=== PATIENT | male | born 1990 | race Caucasian/White ===

== ENCOUNTER 2021-01-23 08:50 | Day surgery (SDC) | payer OTHER, SELFPAY ==
[2021-01-23] VITALS (12 sets, daily range): BP systolic 104–146; BP diastolic 57–97; PULSE 50–79; RESP 10–20; TEMP 36.2–36.3; O2SAT 97–100
--- NOTE | ~2021-01-23 | XR_ITS ---
EXAMINATION: XR retrograde pyelo w/stent RT EXAM DATE: 01/23/2021 15:39 INDICATION: Right-sided obstructive nephropathy. TECHNIQUE: Fluoroscopy used during XR retrograde pyelo w/stent RT performed by Dr. Que Mcghee MD, urologist. The radiologist Sheldon Shipman M.D. dictating this report of the image(s) available was not present for the procedure. Total fluoroscopic time of 50 seconds. The DAP for this procedure wa s 816 radcm2. A total of 9 images sent to PACS from the exam. Cine run(s) available for review. FINDINGS: Property Analyst image demonstrates right UVJ 7 mm stone. Right ureter was cannulated, injected. There is mild right hydroureteronephrosis. A double-J ureteral stent was placed. Correlate with procedure note. IMPRESSION: Mild right hydroureteronephrosis. Stent in position. Reviewed, dictated and finalized at location B.
--- NOTE | ~2021-01-23 | XR_ITS ---
EXAMINATION: XR abdomen/kub 1V INDICATION: Right flank pain TECHNIQUE: Supine views of the abdomen were obtained on 2 radiographs. COMPARISON: 09/16/2019 FINDINGS: There is a 7 mm stone in the right pelvis at the expected location of the right ureterovesi cular junction corresponding to the stone identified on today's CT scan. No additional urolithiasis i s identified. The bowel gas pattern is normal. There are no dilated loops of bowel. IMPRESSION: 1. 7 mm stone at the right ureterovesicular junction. Reviewed, dictated and finalized at location A.
--- NOTE | ~2021-01-23 | CT_ITS ---
EXAMINATION: CT abdomen pelvis wo con DATE: 01/23/2021 09:47 INDICATION: Right flank pain TECHNIQUE: Computed tomography (CT) of the abdomen and pelvis was performed without intravenous contr ast. The dose-length product (DLP) was 412.34 mGy-cm. Automated exposure control and iterative recons truction technique were employed. COMPARISON: 09/16/2019 FINDINGS: Minimal dependent atelectasis is present in the lung bases. The heart size is normal. The l iver, spleen, pancreas, gallbladder, and adrenal glands are normal. The left kidney is unremarkable. There is an 8 mm stone in the right ureterovesicular junction which causes mild right hydroureteronep hrosis. No pathologically enlarged abdominal or pelvic lymph nodes are identified. There is no free i ntraperitoneal gas or evidence of bowel obstruction. The appendix is normal. There is a tiny fat-cont aining umbilical hernia. IMPRESSION: 1. 8 mm stone at the right ureterovesicular junction causing moderate hydroureteronephrosis. Reviewed, dictated and finalized at location A. IMPRESSION: 1. 8 mm stone at the right ureterovesicular junction causing moderate hydrouret eronephrosis.
[2021-01-23] MEDS: SODIUM CHLORIDE 0.9% IV 1,000 ML 999 ML IV CONT ×2 (09:25→12:32)
[2021-01-23] MEDS: MORPHINE SULFATE (*CRX) 4 MG/ML INJ IV PUSH (09:27)
[2021-01-23] MEDS: ONDANSETRON INJ 4 MG/2 ML VIAL IV PUSH (09:28)
[2021-01-23 09:30] LABS: Basophils Percent Auto 0.5 % (0.2-1.2); Eosinophils Absolute Auto 0.3 K/mm3 (0-0.3); Eosinophils Percent Auto 5.1 % (0-4.4); Hematocrit 49.8 % (42.0-52.0); Hemoglobin 17.3 g/dL (14.0-18.0); Immature Granulocyte Absolute 0.02 K/mm3 (0.00-0.031); Immature Granulocyte Percent A 0.4 % (0-0.5); Lymphocytes Absolute Auto 1.86 K/mm3 (0.9-3.2); Lymphocytes Percent Auto 33.9 % (18.3-44.2); Mean Corpuscular HGB Conc 34.7 g/dl (32-36); Mean Corpuscular Hemoglobin 30.2 pg (26-34); Mean Corpuscular Volume 86.9 fl (80-100); Mean Platelet Volume 10.9 fl (7.4-10.4); Monocytes Absolute Auto 0.4 K/mm3 (0.1-0.6); Monocytes Percent Auto 6.7 % (2.6-8.5); Neutrophils Absolute Auto 2.9 K/mm3 (1.3-6.7); Neutrophils Percent Auto 53.4 % (45.5-73.1); Platelet Count Result 227 k/mm3 (150-375); Red Blood Count 5.73 M/mm3 (4.6-6.20); White Blood Count 5.5 K/mm3 (4.5-10.0)
[2021-01-23 09:35] LABS: Add Urine Microscopic? YES; Appearance Urine Clear (Clear); Bilirubin Urine Negative (Negative); Blood Urine 2+ (Negative); Color Urine Straw (Yellow); Glucose Urine UA Negative (Negative); Ketones Urine Negative (Negative); Leukocyte Esterase Ur Negative LEU/UL (Negative); Mucus Urine Rare /lpf; Nitrate Urine Negative (Negative); Protein Urine Negative (Negative); RBC Urine 0-2 /hpf (0-2); Urobilinogen Urine Negative mg/dL (<2.0); WBC Urine 0-3 /hpf
[2021-01-23 09:42] LABS: Anion Gap 9 mmol/L (8-16); Blood Urea Nitrogen 11 mg/dL (9-20); Calcium 9.8 mg/dL (8.4-10.2); Carbon Dioxide 31 mmol/L (22-30); Chloride 102 mmol/L (98-107); Estimated CRCL calculation 99 ml/min; Estimated Glomerular Filt Rate > 60; Glucose 98 mg/dL (75-110); Potassium 3.4 mmol/L (3.4-5.0); Sodium 142 mmol/L (137-145)
--- NOTE | 2021-01-23 09:51 | ED.GENADULT ---
HPI - General Adult General Chief complaint: Back Pain/Injury Stated complaint: kidney stone Time Seen by Provider: 01/23/21 09:08 Source: patient Mode of arrival: ambulatory Limitations: no limitations History of Present Illness HPI narrative: Patient is a 30-year-old male who presents to emergency department for evaluation of right-sided flank pain with pain to the back into the testicle with history of kidney stones patient has seen urology at [facility] notes over the weekend he developed pain which improved and then worsened today patient presents uncomfortable in no distress and also notes nausea. Patient has not taken anything for his symptoms Related Data Allergies Allergy/AdvReac Type Severity Reaction Status Date / Time No Known Allergies Allergy Unverified 04/26/19 11:07 Review of Systems Review of Systems: All systems reviewed & are unremarkable except as noted in HPI and below PMFSH Past Medical History Medical History Urolithiasis Surgical History Surgical History History of urethral stent Family History Family History (Updated 05/18/14 @ 07:13 by DOCTOR UNKNOWN) Grandparent Family history of Alzheimer's disease Social History Social History Smoking status: Never smoker Alcohol intake: never Exam Narrative: Exam Narrative: GENERAL: Well-appearing, well-nourished, uncomfortable and in no acute distress. HEAD: Normocephalic, atraumatic. EYES: PERRLA and EOMI. ENT: Nares clear, no rhinorrhea or epistaxis. Mucous membranes moist. CHEST: Clear to auscultation. No respiratory distress. No wheezes rales or rhonchi HEART: Regular rate and rhythm. No murmur heard. Normal peripheral pulses. ABDOMEN: Soft, nontender, nondistended, . EXTREMITIES: Normal range of motion. No edema. SKIN: Warm, dry, no rash. NEURO: No focal deficits. Alert and oriented x3. PSYCH: Normal mood and affect. Course Course Emergency Course: Patient with urolithiasis in the room at this time in no distress aware of case findings treatment plan and diagnosis patient denies Reevaluation(s) Reevaluation #1: Patient in the room at this time resting with improved pain with Dilaudid as required multiple doses of pain medication and is currently being hydrated no distress does not appear uncomfortable is aware of the consultation with urology and his findings Date: 01/23/21 Time: 10:41 Reevaluation #2: Patient will be going to the OR at this time Dr. Gonzalez will be performing the procedure. Nurse practitioner Lakseha is in the ER seen the patient Date: 01/23/21 Time: 12:44 Consultations Consultation #1: Discussed case with Lakesha with urology who will come to the ER to consult on patient Date: 01/23/21 Time: 10:41 Vital Signs Vital signs: Vital Signs Temperature 97.1 F L 01/23/21 09:05 Pulse Rate 57 L 01/23/21 09:05 Respiratory Rate 15 01/23/21 09:05 Blood Pressure 128/97 H 01/23/21 09:05 Pulse Oximetry 100 01/23/21 09:05 Temperature 97.1 F L 01/23/21 09:05 Pulse Rate 60 01/23/21 11:07 Respiratory Rate 14 01/23/21 11:07 Blood Pressure 126/86 01/23/21 11:07 Pulse Oximetry 100 01/23/21 11:07 Medical Decision Making MDM Narrative Medical decision making narrative: Patient presented with urolithiasis will go to the operative suite Dr. Gonzalez will do the procedure patient is hemodynamically stable with pain controlled at this time Vital Signs Vital Signs: Vital Signs Temperature 97.1 F L 01/23/21 09:05 Pulse Rate 57 L 01/23/21 09:05 Respiratory Rate 15 01/23/21 09:05 Blood Pressure 128/97 H 01/23/21 09:05 Pulse Oximetry 100 01/23/21 09:05 Temperature 97.1 F L 01/23/21 09:05 Pulse Rate 60 01/23/21 11:07 Respiratory Rate 14 01/23/21 11:07 Blood Pressure 126/86 01/23/21 11:07 P
[2021-01-23] MEDS: HYDROmorphone HCL INJ (*CRX) 1 MG/ML SYR IV PUSH ×2 (10:10→11:56)
[2021-01-23 10:28] LABS: Specific Grav Ur 1.004 (1.001-1.035)
--- NOTE | 2021-01-23 12:06 | WPDANESEPPF ---
Anes - Initial Pre Proc Eval Procedure: Operation Date: 01/23/21 14:30 Proposed Procedures p Cystoscopy,Right Ureteroscopy.Right Retrograde Pyelogram,Stone Extraction,Possible Holmium Laser,Possible Stent Placement - Que Mcghee MD Date/Time: 01/23/21 12:06 Pre Op Diagnosis: kidney stone Patient Data Age: 30 Gender: M Height: 1.8 m Weight: 102 kg Last Vital Signs Temp 36.2 C L 01/23/21 09:05 Pulse 60 01/23/21 11:07 Resp 14 01/23/21 11:07 BP 126/86 01/23/21 11:07 Pulse Ox 100 01/23/21 11:07 Allergies Allergy/AdvReac Type Severity Reaction Status Date / Time No Known Allergies Allergy Unverified 04/26/19 11:07 Laboratory Tests 01/23/21 01/23/21 01/23/21 09:18 09:18 09:18 WBC 5.5 K/mm3 K/mm3 (4.5-10.0) RBC 5.73 M/mm3 M/mm3 (4.6-6.20) Hgb 17.3 g/dL g/dL (14.0-18.0) Hct 49.8 % % (42.0-52.0) MCV 86.9 fl fl (80-100) MCH 30.2 pg pg (26-34) MCHC 34.7 g/dl g/dl (32-36) RDW 12.0 % % (11.5-14.5) Plt Count 227 k/mm3 k/mm3 (150-375) MPV 10.9 fl H fl (7.4-10.4) Immature Gran % (Auto) 0.4 % % (0-0.5) Neut % (Auto) 53.4 % % (45.5-73.1) Lymph % (Auto) 33.9 % % (18.3-44.2) Creek % (Auto) 6.7 % % (2.6-8.5) Eos % (Auto) 5.1 % H % (0-4.4) Baso % (Auto) 0.5 % % (0.2-1.2) Lymph # (Auto) 1.86 K/mm3 K/mm3 (0.9-3.2) Creek # (Auto) 0.4 K/mm3 K/mm3 (0.1-0.6) Eos # (Auto) 0.3 K/mm3 K/mm3 (0-0.3) Baso # (Auto) 0.0 K/mm3 K/mm3 (0.0-0.1) Abs Immat Gran (auto) 0.02 K/mm3 K/mm3 (0.00-0.031) Absolute Neuts (auto) 2.9 K/mm3 K/mm3 (1.3-6.7) Absolute Nucleated RBC 0.0 K/mm3 K/mm3 (0.0-0.012) Nucleated RBC % 0.0 % % (0.0-0.2) Sodium 142 mmol/L mmol/L (137-145) Potassium 3.4 mmol/L mmol/L (3.4-5.0) Chloride 102 mmol/L mmol/L (98-107) Carbon Dioxide 31 mmol/L H mmol/L (22-30) Anion Gap 9 mmol/L mmol/L (8-16) BUN 11 mg/dL mg/dL (9-20) Creatinine 1.20 mg/dL mg/dL (0.7-1.3) Estim Creat Clear Calc 99 ml/min ml/min Estimated GFR > 60 (59 - ) Glucose 98 mg/dL mg/dL (75-110) Calcium 9.8 mg/dL mg/dL (8.4-10.2) Urine Color Straw (Yellow) Urine Appearance Clear (Clear) Urine pH 6.0 (5.0-9.0) Ur Specific [place] 1.004 (1.001-1.035) Urine Protein Negative mg/dL mg/dL (Negative) Urine Glucose (UA) Negative mg/dL mg/dL (Negative) Urine Ketones Negative mg/dL mg/dL (Negative) Ur Blood (Man) 2+ H (Negative) Urine Nitrate Negative (Negative) Urine Bilirubin Negative (Negative) Urine Urobilinogen Negative mg/dL mg/dL (<2.0) Leukocyte Esterase Rfl Negative LISA/UL LISA/UL (Negative) Urine RBC 0-2 /hpf /hpf (0-2) Urine WBC 0-3 /hpf /hpf Urine Mucus Rare /lpf /lpf Patient hx anesthesia problems: none Family hx anesthesia problems: none [facility] Past Medical History Medical History Urolithiasis Surgical History Surgical History History of urethral stent Family History Family History Grandparent Family history of Alzheimer's disease Social History Social History Smoking status: Never smoker Alcohol intake: never Anes - Eval Final PreProcedure Day of Procedure 01/23/21 12:06 Patient weight: obese Heart: regular rate and rhythm Lungs: clear to auscultation and normal air movement Airway: Mallampati scale class
--- NOTE | 2021-01-23 12:53 | WPDURCON ---
Assessment and Plan Assessment and plan (1) Urolithiasis: Code(s): N20.9 - Urinary calculus, unspecified Status: Acute Assessment and Plan: Plan to go to the OR with Dr. Mcghee for: Cystoscopy, right ureteroscopy with stone extraction and possible right stent placement, right retrograde pyelogram, possible holmium laser. Keep NPO, he hasn't eating in >24 hours. Obtain consent. Urology Consult Note HPI Date Seen: 01/23/21 Primary Care Provider: Zach Cooley, Consult Narrative Narrative: Kel Cheng is a 30 year old male who presents to the ER this morning for acute onset of RLQ pain that began around 7am. He denies nausea, vomiting, hematuria, dysuria or frequency to urinate. He states he passed two small stones on Thursday without problem. He has a history of passing stones, and has had a Ureteroscopy with Dr. Lovett in the past to have a stone removed. His CT scan this morning shows an 8mm right UVJ stone, with no other stones present. His WBC is stable, urinalysis shows only 2+ blood and is not suspicious of a UTI, Creatinine is also stable. He is otherwise healthy and denies a history of chronic UTI. He has never had a stone workup before and would like to do that in the office in the future since he has passed so many stones. Review of Systems Cardiovascular: Cardiovascular: Denies chest pain Respiratory: Respiratory: Reports no additional respiratory complaints Gastrointestinal: Gastrointestinal: Reports abdominal pain, Denies nausea and Denies vomiting Genitourinary: Genitourinary: Denies hematuria, Denies dysuria, Denies flank pain, Denies urinary frequency, Denies urinary hesitancy and Denies urinary urgency [facility] Past Medical History Medical History Urolithiasis Surgical History Surgical History History of urethral stent Family History Family History Grandparent Family history of Alzheimer's disease Social History Social History Smoking status: Never smoker Alcohol intake: never Meds Home Medications and Allergies Allergies Allergy/AdvReac Type Severity Reaction Status Date / Time No Known Allergies Allergy Unverified 04/26/19 11:07 Vital Signs Vital Signs - 24 hr 01/23/21 09:05 01/23/21 11:07 Temperature 97.1 F L Pulse Rate 57 L 60 Respiratory Rate 15 14 Blood Pressure 128/97 H 126/86 Pulse Oximetry 100 100 Exam Resp: Effort & Inspection: normal respiratory effort Cardio: Rate: regular rate GI: GI Palp: Yes Soft to palpation and Yes Tenderness to palpation present (GI) (RLQ) : General: Yes no CVA tenderness Extrem: General: no edema Results Labs CBC & Chem 7: 01/23/21 09:18 01/23/21 09:18 Labs: Short CBC 01/23/21 Range/Units 09:18 WBC 5.5 (4.5-10.0) K/mm3 Hgb 17.3 (14.0-18.0) g/dL Hct 49.8 (42.0-52.0) % Plt Count 227 (150-375) k/mm3 BMP 01/23/21 09:18 Sodium 142 Potassium 3.4 Chloride 102 Carbon Dioxide 31 H BUN 11 Creatinine 1.20 Glucose 98 Calcium 9.8 Urine 01/23/21 Range/Units 09:18 Urine Color Straw (Yellow) Urine Appearance Clear (Clear) Urine pH 6.0 (5.0-9.0) Ur Specific [place] 1.004 (1.001-1.035) Urine Protein Negative (Negative) mg/dL Urine Glucose (UA) Negative (Negative) mg/dL
[2021-01-23] MEDS: LACTATED RINGERS 1,000 ML 30 ML IV CONT ×2 (13:20→15:43)
--- NOTE | 2021-01-23 13:53 | WPDHPUPDATE1 ---
History and Physical Update Update Date/Time: 01/23/21 13:53 History and Physical has been reviewed, including an updated exam of the patient. There are NO changes in the patient's condition. Risks, benefits, and alternatives have been discussed and questions answered. Patient agrees to proceed with procedure.
[2021-01-23] MEDS: ceFAZolin 2 GM/D5W 50 ML 2 GM/50 ML BAG IVPB (15:00)
[2021-01-23] MEDS: LIDOCAINE HCL 2% GEL UROJET 10 ML PKG MUCOUS MEM (15:14)
[2021-01-23] MEDS: fentaNYL CITRATE INJ (*CRX) 100 MCG/2 ML VIAL 25 MCG IV PUSH (16:33)
--- NOTE | 2021-01-23 17:05 | PM.PROC ---
Procedure Note - Detailed Date of procedure: 01/23/21 Pre-op diagnosis: kidney stone Post-op diagnosis: same Procedure performed: Cystoscopy, right ureteroscopy, laser lithotripsy, stone extraction, retrograde pyelogram, stent insertion Description of procedure: Informed consent was obtained. Patient taken the operating room. He was given preoperative IV antibiotics. He was induced anesthesia. He was prepped and draped in normal sterile fashion. A 22 F cystoscope was inserted through the urethra into the bladder reinspected the bladder there are no mucosal abnormalities. We then cannulated the right ureteral orifice with a wire. As able to pass a wire beyond the level of the radiopaque stone. We then dilated the distal ureter with a 8-10 coaxial dilator. We then advanced the semi rigid ureteral scope into the distal ureter we encountered the stone. The stone was too large to be removed therefore used a laser fiber to fragment the stone into multiple pieces. Stone fragments removed stent specimen. We then performed retrograde pyelogram which revealed assb-[id number] hydronephrosis. Inspected the distal half of the ureter and there were no residual stones seen over wire replaced a 4.8 variable length stent with a partial curl in the kidney and a curl in the bladder. The bladder is emptied. Lidocaine was instilled. patient was taken to PACU in stable condition Anesthesia: GLMA Surgeon: Que Mcghee MD Drains: No Packing: No Pathology: yes Complications: No immediate complications Condition: stable Disposition: PACU
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
[2021-01-23] MEDS: PHENAZOPYRIDINE HCL 100 MG TABLET PO (17:21)
== END 2021-01-23 17:32 | disposition home or self-care (01) ==
LOC: ANHED 12:45 → ANHSURGERY 12:56
PROVIDERS: Emergency Medicine Emergency Medical Services; Emergency Provider Emergency Medicine; PCP Internal Medicine; Visit Provider Urology
PROC: (CPT 52352; principal; 2021-01-23 14:30)
DX: N20.1 Calculus of ureter (principal); E66.9 Obesity, unspecified; Z68.31 Body mass index [BMI] 31.0-31.9, adult
CPT/HCPCS: 52356; 36415; 74018; 74176; 74420; 80048; 81001; 82365; 85025; 88300; 96361; 96365; 96375; 96376; 99285; A9270; C1769; C2617; J0131; J0690; J1100; J1170; J2250; J2270; J2405; J2704; J3010; J7030; J7120; Q9966

== ENCOUNTER 2021-02-26 14:15 | Outpatient (CLI) | payer OTHER, SELFPAY ==
--- NOTE | ~2021-02-26 | XR_ITS ---
EXAMINATION: XR abdomen/kub 1V DATE: 02/26/2021 14:35 INDICATION: Right ureteral stone TECHNIQUE: A supine view of the abdomen on 2 radiographs was obtained. COMPARISON: KUB and CT dated 01/23/2021 FINDINGS: The stone previously seen at the right ureterovesicular junction is no longer visualized. No evident calcifications identified in the abdomen or pelvis. No dilated loops of bowel to suggest obstruction. Minimal lumbar levocurvature. IMPRESSION: 1. Normal bowel gas pattern. No evident urolithiasis. Reviewed, dictated and finalized at location A.
== END 2021-02-26 14:16 | disposition home or self-care (01) ==
PROVIDERS: PCP Internal Medicine; Visit Provider Urology
DX: N20.1 Calculus of ureter (principal)
CPT/HCPCS: 74018

== ENCOUNTER 2021-11-02 14:13 | Emergency (ER) | payer OTHER, SELFPAY ==
--- NOTE | ~2021-11-02 | XR_ITS ---
EXAMINATION: XR hand RT min 3V DATE: 11/02/2021 15:01 INDICATION: Right hand injury. TECHNIQUE: 3 views of right hand were obtained. COMPARISON: Right wrist radiographs 07/17/2015 FINDINGS: Bone alignment is normal. No fracture. Joint spaces are well maintained. IMPRESSION: 1. Normal right hand. Reviewed, dictated and finalized at location E. OWS INFRASTRUCTURE ENGINEER IMPRESSION: 1. Normal right hand.
--- NOTE | ~2021-11-02 | XR_ITS ---
EXAMINATION: XR hand LT min 3V DATE: 11/02/2021 15:01 INDICATION: Left hand injury. TECHNIQUE: 3 views of left hand were obtained. COMPARISON: None. FINDINGS: Bone alignment is normal. No fracture. Joint spaces are well maintained. IMPRESSION: 1. Normal left hand. Reviewed, dictated and finalized at location E. GLASS INSTALLER IMPRESSION: 1. Normal left hand.
[2021-11-02 14:15] VITALS: BP 161/117; PULSE 60; RESP 16; O2SAT 95
--- NOTE | 2021-11-02 14:40 | PC.NURSE ---
unable to obtain oral or axillary temp. mariana pennington applied.
[2021-11-02 14:41] VITALS: TEMP 37.2
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
[2021-11-02] MEDS: LIDOCAINE, EPINEPHRINE, TETRACAINE VISCOUS SOLN 3 ML (15:30)
== END 2021-11-02 16:21 | disposition home or self-care (01) ==
PROVIDERS: Emergency Provider Emergency Medicine; PCP Internal Medicine
DX: S61.512A Laceration without foreign body of left wrist, initial encounter (principal); S61.412A Laceration without foreign body of left hand, initial encounter; S61.411A Laceration without foreign body of right hand, initial encounter; Z87.442 Personal history of urinary calculi; W25.XXXA Contact with sharp glass, initial encounter
CPT/HCPCS: 12001; 73130; 99284

== ENCOUNTER 2023-02-07 09:44 | Emergency (ER) | payer OTHER, SELFPAY ==
[2023-02-07 10:01] VITALS: BP 137/66; PULSE 83; RESP 20; TEMP 36.6; O2SAT 98
--- NOTE | 2023-02-07 10:25 | ED.MALEGU ---
HPI - Male Genitourinary General Chief complaint: Urogenital-Male Stated complaint: Male Urogenital Time Seen by Provider: 02/07/23 10:08 Source: patient and RN notes reviewed Mode of arrival: ambulatory Limitations: no limitations History of Present Illness HPI Narrative: Patient presents today with an 8-9 day history of a dull ache in his right groin area that radiates to the right or abdomen. States the ache is, ?sporadic , and nothing is painful. He denies dysuria, swelling gas in the right testicle or scrotum, redness. States he does have some pain with ejaculation. Believes he may have epididymitis. Denies concerns for sexually transmitted infections. States he has not had intercourse since May 2022. Related Data Home Medications Medication Instructions Recorded Confirmed desvenlafaxine succinate 50 mg 50 mg PO DAILY 02/07/23 02/07/23 tablet,extended release 24 hr Allergies Allergy/AdvReac Type Severity Reaction Status Date / Time No Known Allergies Allergy Verified 02/07/23 09:47 Review of Systems Review of Systems: CONSTITUTIONAL: Denies body aches, fever, chills, or sweats. EYES: Denies visual changes, redness, or discharge. ENT: Denies rhinorrhea, congestion, sore throat, or otalgia. CARDIOVASCULAR: Denies chest pain, palpitations, or edema. RESPIRATORY: Denies cough or dyspnea. GASTROINTESTINAL: Denies abdominal pain, nausea, vomiting, or diarrhea. GENITOURINARY: Denies dysuria or hematuria. Discomfort to right groin, pain with ejaculation. SKIN: Denies rash, itching, or wounds. MUSCULOSKELETAL: Denies back pain, joint pain, or myalgia. NEUROLOGIC: Denies headache, numbness, tingling, or weakness. PSYCH: Denies depression or anxiety. [facility] Past Medical History Medical History Urolithiasis Surgical History Surgical History History of urethral stent Family History Family History Grandparent Family history of Alzheimer's disease Social History Social History Smoking status: Never smoker Alcohol intake: never Comments At time of signature, I have reviewed and agree with nursing past medical, surgical, social and family history unless otherwise noted. Please see nursing chart for further information. There is no relevant family history pertinent to the presenting complaint Exam Narrative: GENERAL: Well-appearing, well-nourished, and in no acute distress. HEAD: Normocephalic, atraumatic. EYES: EOMI. No redness or drainage. Conjunctivae normal. ENT: Mucous membranes pink and moist. NECK: Normal AROM. CHEST: No respiratory distress. : Chaperoned by Harika Montero RN. Penis appears normal and is nontender. Left testicle is nontender. Right testicle is tender posteriorly without edema. No erythema to the scrotum. Lower abdomen is nontender. No wounds or sores noted. No urethral discharge. EXTREMITIES: Normal range of motion. No edema. SKIN: Warm, dry, no rash. Capillary refill normal. Normal skin turgor. NEURO: No focal deficits. Alert and oriented x3. Gait steady. PSYCH: Normal affect. No signs of depression or anxiety. Course Course Level of Care: Express Care Visit Vital Signs Vital signs: Vital Signs Temperature 97.9 F 02/07/23 10:01 Pulse Rate 83 02/07/23 10:01 Respiratory Rate 02/07/23 10:01 Blood Pressure 137/66 02/07/23 10:01 Pulse Oximetry 98 02/07/23 10:01 Oxygen Delivery Room Air 02/07/23 10:01 Temperature 97.9 F 02/07/23 10:01 Pulse Rate 83 02/07/23 10:01 Respiratory Rate 02/07/23 10:01 Blood Pressure 137/66 02/07/23 10:01 Pulse Oximetry 98 02/07/23 10:01 Oxygen Delivery Room Air 02/07/23 10:01 Reviewed. Pt has been instructed to follow up w
== END 2023-02-07 10:38 | disposition home or self-care (01) ==
PROVIDERS: Emergency Provider Nurse Practitioner; PCP Internal Medicine
DX: N50.811 Right testicular pain (principal)
CPT/HCPCS: 81003; 87491; 87591; 99213; G0463

== ENCOUNTER 2023-02-19 08:09 | Emergency (ER) | payer OTHER, SELFPAY ==
--- NOTE | ~2023-02-19 | CT_ITS ---
EXAMINATION: CT abdomen pelvis w con DATE: 02/19/2023 09:33 INDICATION: Low abdominal pain. TECHNIQUE: Computed tomography (CT) of the abdomen and pelvis was performed with 100 mL Omnipaque 350 intravenous contrast. Automated exposure control and iterative reconstruction technique were employe d. The dose-length product was 1070.03 mGy-cm. COMPARISON: CT abdomen and pelvis 01/23/2021 FINDINGS: The visualized portions of the lung bases demonstrate minimal atelectasis. No pleural effus ion. The heart size is normal. No pericardial effusion. The liver, gallbladder, spleen, pancreas, adr enal glands, and kidneys are normal. The appendix is normal. There are no dilated loops of bowel. The re are no pathologically enlarged lymph nodes. There is no free intraperitoneal fluid. There is mild thoracic and lumbar spondylosis. IMPRESSION: 1. No etiology for the patient's symptoms. Reviewed, dictated and finalized at location A.
--- NOTE | ~2023-02-19 | US_ITS ---
EXAMINATION: US scrotum doppler DATE: 02/19/2023 08:50 INDICATION: Bilateral testicular pain TECHNIQUE: Testicular sonogram utilizing grayscale and Doppler COMPARISON: None. FINDINGS: The right testis measures 4.5 x 3.4 x 2.6 cm. The left testis measures 4.4 x 3.0 x 2.4 cm. There is normal vascular flow to both testes. The right epididymis is normal with normal vascular xiomy w. The left epididymis contains a 6 mm cyst or spermatocele. Small bilateral varicoceles are noted. IMPRESSION: 1. Small bilateral varicoceles. Reviewed, dictated and finalized at location L.
[2023-02-19 08:16] VITALS: BP 172/77; PULSE 90; RESP 18; TEMP 37; O2SAT 97
--- NOTE | 2023-02-19 08:30 | ED.MALEGU ---
HPI - Male Genitourinary General Chief complaint: Urogenital-Male Stated complaint: testicular pain Time Seen by Provider: 02/19/23 08:26 Source: patient Mode of arrival: ambulatory Limitations: no limitations History of Present Illness HPI Narrative: 32 years old white male presents with intermittent sharp stabbing pain at the scrotum posteriorly started 3 weeks ago, he denies any trauma, fever, chills, nausea, vomiting, or urinary symptoms. Pain worse when he tried to set up. Denies any sexual activity over the last few months, last masturbation was yesterday. Patient was seen at urgent care 2 weeks ago, Bactrim, no improvement. Pain has been constant over the last 2 days. Related Data Home Medications Medication Instructions Recorded Confirmed desvenlafaxine succinate 50 mg 50 mg PO DAILY 02/07/23 02/07/23 tablet,extended release 24 hr Allergies Allergy/AdvReac Type Severity Reaction Status Date / Time No Known Allergies Allergy Verified 02/19/23 08:19 Review of Systems Review of Systems: All systems reviewed & are unremarkable except as noted in HPI and below PMFSH Past Medical History Medical History Urolithiasis Surgical History Surgical History History of urethral stent Family History Family History Grandparent Family history of Alzheimer's disease Social History Social History Smoking status: Never smoker Alcohol intake: never Exam Narrative: General appearance: Well-developed, well-nourished Skin: Normal color Head: Normocephalic, nontraumatic Eyes: Clear conjunctiva ENT: Oropharynx normal, ears normal, nose normal Neck: Supple, nontender Chest and respiratory: Airway patent, no respiratory distress, no accessory muscle use Heart: Regular rate/rhythm Abdomen: Soft, nontender, no organomegaly, quiet bowel sounds, genital exam showed no abnormalities. No swelling, no bruises, no mass, no localized tenderness of the penis or the scrotum or testicles Vascular: Normal peripheral pulses, normal capillary refill. Musculoskeletal: Normal range of motion, nontender back Neurologic: Alert and oriented ?3, DIGITAL MEDIA INTERN is normal as tested, no gross motor deficit Course Reevaluation(s) Reevaluation #1: Still have some discomfort and the scrotum posteriorly. Does not look in pain or distress. Date: 02/19/23 Time: 10:42 Vital Signs Vital signs: Vital Signs Temperature 37.0 C 02/19/23 08:16 Pulse Rate 90 02/19/23 08:16 Respiratory Rate 18 02/19/23 08:16 Blood Pressure 172/77 H 02/19/23 08:16 Pulse Oximetry 97 02/19/23 08:16 Temperature 37.0 C 02/19/23 08:16 Pulse Rate 84 02/19/23 10:34 Respiratory Rate 16 02/19/23 10:34 Blood Pressure 144/86 H 02/19/23 10:34 Pulse Oximetry 99 02/19/23 10:34 MDM - Male Genitourinary MDM Narrative Medical decision making narrative: Patient presents with pain at the scrotum posteriorly for the last 3 weeks, physical examination was insignificant, blood work-up includes CBC, CMP, urine analysis showed insignificant abnormalities. Scrotal ultrasound showed small bilateral varicocele, CT abdomen and pelvis with IV contrast showed no etiology for the patient's symptoms. I do not believe the varicocele has anything to do with his pain, could be masturbation related . Anyway patient will be discharged and to follow-up with Dr. Lovett for further evaluation. Differential Diagnosis Differential diagnosis: Likely other (Epididymitis, orchit
[2023-02-19 09:00] LABS: Basophils Percent Auto 0.5 % (0.2-1.2); Eosinophils Absolute Auto 0.3 K/mm3 (0-0.3); Eosinophils Percent Auto 4.3 % (0-4.4); Hematocrit 46.7 % (42.0-52.0); Immature Granulocyte Absolute 0.01 K/mm3 (0.00-0.031); Immature Granulocyte Percent A 0.2 % (0-0.5); Lymphocytes Absolute Auto 1.77 K/mm3 (0.9-3.2); Lymphocytes Percent Auto 27.4 % (18.3-44.2); Mean Corpuscular HGB Conc 34.3 g/dl (32-36); Mean Corpuscular Hemoglobin 30.2 pg (26-34); Mean Corpuscular Volume 88.3 fl (80-100); Mean Platelet Volume 10.7 fl (7.4-10.4); Monocytes Absolute Auto 0.4 K/mm3 (0.1-0.6); Monocytes Percent Auto 6.2 % (2.6-8.5); Neutrophils Percent Auto 61.4 % (45.5-73.1); Platelet Count Result 214 k/mm3 (150-375); Red Blood Count 5.29 M/mm3 (4.6-6.20); Red Cell Distribution Width 12.8 % (11.5-14.5); White Blood Count 6.5 K/mm3 (4.5-10.0)
[2023-02-19 09:11] LABS: Alanine Aminotransferase 156 U/L (6-50); Albumin Level 4.5 g/dL (3.5-5.1); Alkaline Phosphatase 61 U/L (38-126); Anion Gap 7 mmol/L (8-16); Aspartate Amino Transferase 74 U/L (17-59); Bilirubin,Total 0.8 mg/dL (0.2-1.3); Blood Urea Nitrogen 10 mg/dL (9-20); Calcium 8.9 mg/dL (8.4-10.2); Carbon Dioxide 32 mmol/L (22-30); Chloride 105 mmol/L (98-107); Estimated CRCL calculation 114 ml/min; Estimated Glomerular Filt Rate > 60; Glucose 103 mg/dL (65-110); Potassium 3.6 mmol/L (3.4-5.0); Sodium 144 mmol/L (137-145)
[2023-02-19 10:02] LABS: Appearance Urine Clear (Clear); Bilirubin Urine Negative (Negative); Blood Urine Negative (Negative); Color Urine Yellow (Yellow); Glucose Urine UA Negative (Negative); Ketones Urine Trace mg/dL (Negative); Leukocyte Esterase Ur Negative LEU/UL (Negative); Nitrate Urine Negative (Negative); Protein Urine Negative (Negative); Specific Grav Ur 1.031 (1.001-1.035)
[2023-02-19 10:32] LABS: Add Urine Microscopic? NO
[2023-02-19 10:34] VITALS: BP 144/86; PULSE 84; RESP 16; O2SAT 99
== END 2023-02-19 10:38 | disposition home or self-care (01) ==
PROVIDERS: Emergency Provider Emergency Medicine; PCP Internal Medicine
DX: I86.1 Scrotal varices (principal); Z87.442 Personal history of urinary calculi; Z96.0 Presence of urogenital implants
CPT/HCPCS: 36415; 74177; 76870; 80053; 81003; 85025; 93976; 99284; Q9967

== ENCOUNTER 2023-02-28 08:12 | Emergency (ER) | payer OTHER, SELFPAY ==
[2023-02-28 08:43] VITALS: BP 130/80; PULSE 73; RESP 18; TEMP 36.3; O2SAT 98
--- NOTE | 2023-02-28 09:05 | ED.EYEPROB ---
HPI - Eye Problem General Chief complaint: Eye Problems Stated complaint: rt eye irritation Time Seen by Provider: 02/28/23 08:58 Source: patient and RN notes reviewed Mode of arrival: ambulatory Limitations: no limitations History of Present Illness HPI Narrative: Patient presents today complaining of redness and small amount of drainage from the right eye that he noticed when he woke up this morning. Denies pain or vision changes. He has tried no [id number] interventions prior to arrival. No recent illness or allergy symptoms. Related Data Home Medications Medication Instructions Recorded Confirmed desvenlafaxine succinate 50 mg 50 mg PO DAILY 02/07/23 02/07/23 tablet,extended release 24 hr Allergies Allergy/AdvReac Type Severity Reaction Status Date / Time No Known Allergies Allergy Verified 02/28/23 08:53 Review of Systems Review of Systems: CONSTITUTIONAL: Denies body aches, fever, chills, or sweats. EYES: Denies visual changes. + right eye redness and drainage ENT: Denies rhinorrhea, congestion, sore throat, or otalgia. CARDIOVASCULAR: Denies chest pain, palpitations, or edema. RESPIRATORY: Denies cough or dyspnea. GASTROINTESTINAL: Denies abdominal pain, nausea, vomiting, or diarrhea. GENITOURINARY: Denies dysuria or hematuria. SKIN: Denies rash, itching, or wounds. MUSCULOSKELETAL: Denies back pain, joint pain, or myalgia. NEUROLOGIC: Denies headache, numbness, tingling, or weakness. PSYCH: Denies depression or anxiety. [facility] Past Medical History Medical History Urolithiasis Surgical History Surgical History History of urethral stent Family History Family History Grandparent Family history of Alzheimer's disease Social History Social History Smoking status: Never smoker Alcohol intake: never Comments At time of signature, I have reviewed and agree with nursing past medical, surgical, social and family history unless otherwise noted. Please see nursing chart for further information. There is no relevant family history pertinent to the presenting complaint Exam Narrative: GENERAL: Well-appearing, well-nourished, and in no acute distress. HEAD: Normocephalic, atraumatic. EYES: EOMI. PERRL. Left eye normal. Right eye: Moderately injected conjunctiva. No active drainage noted. Lids and lashes normal. ENT: Mucous membranes pink and moist. NECK: Normal AROM. CHEST: No respiratory distress. EXTREMITIES: Normal range of motion. No edema. SKIN: Warm, dry, no rash. Capillary refill normal. Normal skin turgor. NEURO: No focal deficits. Alert and oriented x3. Gait steady. PSYCH: Normal affect. No signs of depression or anxiety. Course Course Level of Care: Express Care Visit Vital Signs Vital signs: Vital Signs Temperature 97.3 F L 02/28/23 08:43 Pulse Rate 73 02/28/23 08:43 Respiratory Rate 18 02/28/23 08:43 Blood Pressure 130/80 02/28/23 08:43 Pulse Oximetry 98 02/28/23 08:43 Oxygen Delivery Room Air 02/28/23 08:43 Temperature 97.3 F L 02/28/23 08:43 Pulse Rate 73 02/28/23 08:43 Respiratory Rate 18 02/28/23 08:43 Blood Pressure 130/80 02/28/23 08:43 Pulse Oximetry 98 02/28/23 08:43 Oxygen Delivery Room Air 02/28/23 08:43 Reviewed. Pt has been instructed to follow up with his PCP regarding his elevated blood pressure today. MDM - Eye Problem MDM Narrative Medical decision making narrative: Exam consistent with conjunctivitis. Will treat with ofloxacin. Anticipatory guidance given. Differential Diagnosis Differential diagnosis: Likely corneal abrasion, conjunctivitis and periorbital cellulitis Critical Care Time Critical Care Time Critical Care Time: No D
== END 2023-02-28 09:14 | disposition home or self-care (01) ==
PROVIDERS: Emergency Provider Nurse Practitioner; PCP Internal Medicine
DX: H10.31 Unspecified acute conjunctivitis, right eye (principal); Z96.0 Presence of urogenital implants
CPT/HCPCS: 99213; G0463

== ENCOUNTER 2024-10-18 07:18 | Emergency (ER) | payer OTHER, SELFPAY ==
--- NOTE | ~2024-10-18 | CT_ITS ---
EXAMINATION: CT abdomen pelvis w con DATE: 10/18/2024 08:45 INDICATION: Abdominal pain TECHNIQUE: Computed tomography (CT) of the abdomen and pelvis was performed with 100 mL Omnipaque-350 intravenous contrast. Automated exposure control and iterative reconstruction technique were employe d. The dose-length product was 1002.81 mGy-cm. COMPARISON: 02/19/2023 FINDINGS: Mild dependent atelectasis in the bilateral lower lobes, right greater than left. Heart size is glenroy l. No pericardial or pleural effusion. Liver, gallbladder, spleen, pancreas, bilateral adrenal glands and kidneys are normal. There is fluid scattered throughout the colon consistent with nonspecific di arrhea. Small bowel and appendix are normal. Bladder is normal. No free intraperitoneal gas or fluid. No pathologically enlarged abdominal or pelvic lymphadenopathy. Couple small bone islands in the pel vis and proximal left femur. Minimal scattered degenerative skeletal changes. IMPRESSION: 1. Fluid scattered throughout the colon consistent with nonspecific diarrhea. Correlate clinically fo r gastroenteritis. No other acute intra-abdominal/pelvic process. Reviewed, dictated and finalized at location B. 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 Fluid scattered throughout the colon consistent with nonspecific diarrhea. C orrelate clinically for gastroenteritis. No other acute intra-abdominal/pelvic process.
--- OUTSIDE RECORDS SUMMARY | 2024-10-18 07:21 | XMS_ITS | Clinical Summary ---
Author Organization [facility] Address [address] [place] [address]. [place] [address] [place] [address] Care Team Providers Care Waste Collector Name Role Phone Zach Cooley MD Primary Care Provider [phone] Allergies No known active allergies Medications desvenlafaxine ER (PRISTIQ) 50 MG 24 hr tabletIndication s:Moderate episode of recurrent major depressive disorder (CMS/HCC HHS/HCC) Take 1 tablet (50 mg total) by mouth daily. 90 tablet 3 07/04/2024 Active Active Problems Problem Noted Date Diagnosed Date Laceration 11/12/2021 COVID-19 09/18/2020 Resolved Problems Problem Noted Date Diagnosed Date Resolved Date Kidney stone 10/22/2017 05/16/2020 Hematuria 10/19/2017 05/16/2020 Encounters Date Type Department Care Team Description 08/24/2024 9:00 AM PLASMA PROCESSING CENTRIFUGE OPERATOR Office Visit [facility] Family & Internal Medicine [address] [phone] Zach Cooley MD Wart (Patient c/o wart on Rt elbow); Elbow Pain (Patient c/o shooting pain in RT elbow intermittent with certain movements for the last few months. ) 08/24/2024 Travel from Last 3 Months Immunizations Name Administration Dates Next Due Fluzone 6 Months+ Quad (0.5 mL Prefilled Syringe ) 06/13/2020 Hepatitis A 12/16/2012,06/03/2012 Tdap (Adacel) 06/13/2020 Typhoid (Typhim ) 06/03/2012 Yellow Fever (YF- Vax) 06/03/2012 Family History Medical History Relation Comments Other Father Relation Status Comments Father Alive Mother Alive Social History Tobacco Use Types Packs/Day Years Used Date Smoking Tobacco: Former Cigars Smokeless Tobacco: Former Snuff Tobacco Cessation:Counseling Given: Yes Comments:formerly smoked cigars Alcohol Use Standard Drinks/Week Comments Yes 0 (1 standard drink = 0.6 oz pur e alcohol) occasionally AUDIT-C Answer Date Recorded Frequency of Alcohol Consumption Monthly or less 08/05/2018 Average Number of Drinks 1 or 2 018 Frequency of Binge Drinking Never 07/22 PHQ-2 Answer Date Recorded Patient Health Questionnaire-2 Score 3 11/20/2022 Sex and Gender Information Value Date Recorded Sex Assigned at Male 08/05/2018 8:18 AM PLASMA PROCESSING CENTRIFUGE OPERATOR Legal Sex Male 7:15 PM CDT Gender Identity Male 08/05/2018 8:18 AM PLASMA PROCESSING CENTRIFUGE OPERATOR Sexual Orientation Straight 08/05/2018 8: 18 AM PLASMA PROCESSING CENTRIFUGE OPERATOR Last Filed Vital Signs Vital Sign Reading Time Taken Comments Blood Pressure 130/84 08/24/2024 9:43 AM PLASMA PROCESSING CENTRIFUGE OPERATOR Pulse 84 08/24/2024 9:43 AM PLASMA PROCESSING CENTRIFUGE OPERATOR Temperature 37.2 ??C (99 ??F) 08/24/2024 9: 43 AM PLASMA PROCESSING CENTRIFUGE OPERATOR Respiratory Rate 18 08/24/2024 9:43 AM PLASMA PROCESSING CENTRIFUGE OPERATOR Oxygen Saturation 98% 08/24/2024 9:43 AM PLASMA PROCESSING CENTRIFUGE OPERATOR Inhaled Oxygen Concentration - - Weight 110.6 kg (243 lb 14.4 oz) 08/24/2024 9:43 AM PLASMA PROCESSING CENTRIFUGE OPERATOR Height 180.3 cm (5' 11 ) 08/24/2024 9:43 AM PLASMA PROCESSING CENTRIFUGE OPERATOR Body Mass Index 34.02 08/24/2024 9:43 AM PLASMA PROCESSING CENTRIFUGE OPERATOR Plan of Treatment Health Maintenance Due Date Last Done Comments Hepatitis C 2009 Hepatitis B Vaccines (1 of 3 - 19+ 3-dose series) 2010 Annual Physical 05/16/2021 05/16/2020 PHQ-2 (Physician [place]) 11/21/2023 11/20/2022 PHQ-2 (Physician [place]) 09/21/2024 11/20/2022 Influenza Adult (#1) 2025 06/13/2020 Postpon ed from 06/21/2024 (Patient Refused) COVID-19 Vaccine (3 - 2023-2 5 season) 2025 11/20/2020, 10/23/2020 Postponed from 05/22/2024 (Patient Refused) DTaP, Tdap and Td Vaccines ( 2 - Td or Tdap) 06/13/2030 06/13/2020 HPV Vaccines Aged Out No longer eligi ble based on patient's age to complete this topic Meningococcal B Vaccine Aged Out No l onger eligible based on patient's age to complete this topic Meningococcal Vaccine Aged Out No nic fidencio eligible based on patient's age to complete this topic Pneumococcal Vaccine: Pediatrics (0 to 5 Years) and At-Risk Patients (6 to 64 Years) Aged Out No longer eligible b ased on patient's age to complete this topic RSV Immunizations Under 20 Months Aged Out No longer eligible b ased on patient's age to complete this topic Procedures Procedure Name Priority Date/Time Associated Diagnosis Comments DESTRUCTION BY NEUROLYTIC AGENT Routine 08/24/2024 9:00 AM PLASMA PROCESSING CENTRIFUGE OPERATOR Other viral warts from Last 3 Months Results * Lesion Destruction (08/24/2024 9:00 AM PLASMA PROCESSING CENTRIFUGE OPERATOR) Zach Castillo MD - 08/24/2024 9:00 AM PLASMA PROCESSING CENTRIFUGE OPERATOR Zach Cooley MD ? 08/30/2024 ??9:20 PM Lesion Destruction Date/Time: 08/24/2024 9:00 AM Performed by: Zach Cooley MD Authorized by: Zach Cooley MD ?? Number of Lesions: 1 Lesion 1: ??Body area: upper extremity ??Upper extremity location: R elbow ??Initial size (mm): 8 ??Final defect size (mm): 8 ??Malignancy: benign lesion ?Destruction method: cryotherapy ?? us Zach Cooley MD NEUROLOGY ORDERABLES Final Res ult from Last 3 Months Insurance Care Teams Waste Collector Relationship Specialty Start Date End Date Zach Cooley MD [address] [place] [address] PCP - General INTERNAL MEDICINE 10/19/17
[2024-10-18 07:23] VITALS: BP 129/77; PULSE 101; RESP 20; TEMP 36.4; O2SAT 99
--- NOTE | 2024-10-18 07:58 | ED.GENADULT ---
HPI - General Adult General Chief complaint: Nausea/Vomiting/Diarrhea Stated complaint: n/v, gi bleed Time Seen by Provider: 10/18/24 07:37 History of Present Illness HPI narrative: 33-year-old male presenting to the emergency department for evaluation for nausea vomiting abdominal pain and blood in his stool. Patient has been on Thursday RO for the last 3 weeks but has not had any issues. Patient began having nausea vomiting diarrhea yesterday. This morning patient reports he was having intense epigastric pain that lasted approximately 2 hours. Upon arrival emergency department patient states the pain has resolved. Patient states he did have some mucus with blood in it during recent bowel movements. Patient denies any hematemesis. Patient denies any gross hematochezia. Patient denies any blood thinners. Patient denies any previous GI bleeds. Patient does not take large amounts of ibuprofen. Patient has no prior history of pancreatitis Related Data Home Medications ?Medication ?Instructions ?Recorded ?Confirmed ?Last Taken ?Type desvenlafaxine succinate 50 mg 50 mg PO DAILY 02/07/23 02/07/23 Unknown History tablet,extended release 24 hr Allergies Allergy/AdvReac Type Severity Reaction Status Date / Time No Known Allergies Allergy Verified 10/18/24 17:38 Review of Systems Review of Systems: All systems reviewed & are unremarkable except as noted in HPI and below PMFSH Past Medical History Medical History Urolithiasis Surgical History Surgical History History of urethral stent Family History Family History Grandparent Family history of Alzheimer's disease Social History Social History Smoking status: Never smoker Alcohol intake: never Exam Narrative: APPEARANCE: Well appearing, no pain, no distress, well-nourished. HEAD: normocephalic, atraumatic. EYES: PERRLA/EOMI, conjunctivae clear. NOSE: Normal no drainage EARS:TMS clear with good light reflex. THROAT: Pharynx clear, no exudate. NECK: Supple. No adenopathy, no masses. RESPIRATORY: Airway patent, respirations nonlabored. Clear to auscultation bilaterally, no rales, rhonchi, wheezing. CARDIOVASCULAR: Regular rate and rhythm without murmurs rubs or gallops. ABDOMINAL: Soft, nontender, nondistended, normal bowel sounds MUSCULOSKELETAL: Moves all extremities. Strength/ROM intact, No edema, No calf tenderness. NEURO: Alert. Cranial nerves II through XII intact. Good gait. Good coordination SKIN: Warm, dry. Normal Color Course Vital Signs Vital signs: Vital Signs Temperature 97.6 F 10/18/24 07:23 Pulse Rate 101 H 10/18/24 07:23 Respiratory Rate 20 10/18/24 07:23 Blood Pressure 129/77 10/18/24 07:23 Pulse Oximetry 99 10/18/24 07:23 Oxygen Delivery Room Air 10/18/24 07:23 Temperature 98.0 F 10/18/24 10:41 Pulse Rate 86 10/18/24 10:41 Respiratory Rate 16 10/18/24 10:41 Blood Pressure 136/78 10/18/24 10:41 Pulse Oximetry 99 10/18/24 10:41 Oxygen Delivery Room Air 10/18/24 07:23 Medical Decision Making MDM Narrative Medical decision making narrative: 33-year-old male present to the emergency department for evaluation for nausea vomiting diarrhea and epigastric abdominal pain. Patient is afebrile but does have a white blood cell count of 13.9 and a stable hemoglobin of 18.8. Patient was treated with L of IV fluid. Patient did have an anion gap of 15 this was prior to rehydration. Patient's lipase and AST ALT alk-phos are within normal limits. CT scan shows Fluid scattered throughout the colon consistent with nonspecific diarrhea. Correlate clinically for gastroenteritis. No other acute intra-abdominal/pelvic process. Patient's times are consistent with diarrhea. This may be secondary to viral etiology or a adverse reaction to his monitor RO. Patient was advised to start omeprazole for possible gastritis, he will follow a clear liquid diet for the next 1-3 days only provided Zofran for nausea control. Patient was advised have close follow-up with primary care physician. All questions concerns were addressed. Differential Diagnosis Differential Diagnosis: Colitis, diverticulitis, adverse drug reaction, viral etiology, internal hemorrhoids, external hemorrhoids Vital Signs Vital Signs: Vital Signs Temperature 97.6 F 10/18/24 07:23 Pulse Rate 101 H 10/18/24 07:23 Respiratory Rate 20 10/18/24 07:23 Blood Pressure 129/77 10/18/24 07:23 Pulse Oximetry 99 10/18/24 07:23 Oxygen Delivery Room Air 10/18/24 07:23 Temperature 98.0 F 10/18/24 10:41 Pulse Rate 86 10/18/24 10:41 Respiratory Rate 16 10/18/24 10:41 Blood Pressure 136/78 10/18/24 10:41 Pulse Oximetry 99 10/18/24 10:41 Oxygen Delivery Room Air 10/18/24 07:23 Lab Data Lab results reviewed: Yes I reviewed the patient's lab results. 10/18/24 07:59 10/18/24 07:59 Labs: Lab Results 10/18/24 Range/Units 07:59 WBC 13.9 H (4.5-10.0) K/mm3 RBC 6.14 (4.6-6.20) M/mm3 Hgb 18.8 H (14.0-18.0) g/dL Hct 51.2 (42.0-52.0) % MCV 83.4 (80-100) fl MCH 30.6 (26-34) pg MCHC 36.7 H (32-36) g/dl RDW 12.6 (11.5-14.5) % Plt Count 300 (150-375) k/mm3 MPV 10.8 H (7.4-10.4) fl Immature Gran % (Auto) 0.5 (0-0.5) % Neut % (Auto) 83.4 H (45.5-73.1) % Lymph % (Auto) 9.7 L (18.3-44.2) % [place] % (Auto) 4.8 (2.6-8.5) % Eos % (Auto) 1.5 (0-4.4) % Baso % (Auto) 0.1 L (0.2-1.2) % Lymph # (Auto) 1.35 (0.9-3.2) K/mm3 [place] # (Auto) 0.7 H (0.1-0.6) K/mm3 Eos # (Auto) 0.2 (0-0.3) K/mm3 Baso # (Auto) 0.0 (0.0-0.1) K/mm3 Abs Immat Gran (auto) 0.07 H (0.00-0.031) K/mm3 Absolute Neuts (auto) 11.6 H (1.3-6.7) K/mm3 Absolute Nucleated RBC 0.000 (0.0-0.012) K/mm3 Nucleated RBC % 0.0 (0.0-0.2) % Sodium 142 (137-145) mmol/L Potassium 3.6 (3.4-5.0) mmol/L Chloride 107 (98-107) mmol/L Carbon Dioxide 20 L (22-30) mmol/L Anion Gap 15 H (4-12) mmol/L BUN 14 (9-20) mg/dL Creatinine 0.98 (0.7-1.3) mg/dL Estim Creat Clear Calc 118 ml/min Estimated GFR > 60 (59 - ) Glucose 119 H (65-110) mg/dL Calcium 9.3 (8.4-10.2) mg/dL Total Bilirubin 1.4 H (0.2-1.3) mg/dL AST 18 (17-59) U/L ALT 17 (6-50) U/L Alkaline Phosphatase 76 (38-126) U/L Total Protein 8.0 (6.3-8.2) g/dL Albumin 4.6 (3.5-5.1) g/dL Lipase 45 (23-300) U/L Blood Type A Positive Antibody Screen Negative Imaging Data Radiologist's impression: Impressions Abdomen/Pelvis CT 10/18/24 08:55 IMPRESSION: 1. Fluid scattered throughout the colon consistent with nonspecific diarrhea. Correlate clinically for gastroenteritis. No other acute intra-abdominal/pelvic process. Discharge Plan Discharge Clinical Impression: Nausea vomiting and diarrhea, Abdominal pain, epigastric Patient Disposition: Home, Self-Care Condition: Stable Instructions: Antibiotic Form, Clear Liquid Diet (ED), Abdominal Pain (ED) Additional Instructions: Clear liquid diet for the next 1-3 days. Zofran as needed for nausea control. Omeprazole as directed for the next 14 days. Have close follow-up with your primary care physician. If you have any worsening symptoms then please call or return to the emergency department. Your symptoms may be secondary to a viral illness or may be adverse reaction to the [facility] Patient Language: [place] Prescriptions: New omeprazole 20 mg capsule,delayed release(DR/EC) 20 mg PO DAILY 14 Days Qty: 14 0RF ondansetron 4 mg tablet,disintegrating 4 mg PO Q8H PRN (Reason: nausea and vomiting) Qty: 14 0RF hydrocodone-acetaminophen 5-325 mg tablet 1 tablet PO Q12H PRN (Reason: pain) Qty: 14 0RF No Action desvenlafaxine succinate 50 mg tablet extended release 24 hr 50 mg PO DAILY ofloxacin 0.3 % drops See Rx Instructions .ROUTE .COMPLEX Qty: 10 0RF Rx Instructions: put 1-2 drps into affected eye(s) every 2-4 h x 2 days, then 1-2 drps 4 times/day days 3-7 Follow-up/Referrals: Lenora,Zach Bailey MD [Primary Care Provider] -
[2024-10-18 08:06] LABS: Basophils Percent Auto 0.1 % (0.2-1.2); Eosinophils Absolute Auto 0.2 K/mm3 (0-0.3); Eosinophils Percent Auto 1.5 % (0-4.4); Hematocrit 51.2 % (42.0-52.0); Hemoglobin 18.8 g/dL (14.0-18.0); Immature Granulocyte Absolute 0.07 K/mm3 (0.00-0.031); Immature Granulocyte Percent A 0.5 % (0-0.5); Lymphocytes Absolute Auto 1.35 K/mm3 (0.9-3.2); Lymphocytes Percent Auto 9.7 % (18.3-44.2); Mean Corpuscular HGB Conc 36.7 g/dl (32-36); Mean Corpuscular Hemoglobin 30.6 pg (26-34); Mean Corpuscular Volume 83.4 fl (80-100); Mean Platelet Volume 10.8 fl (7.4-10.4); Monocytes Absolute Auto 0.7 K/mm3 (0.1-0.6); Monocytes Percent Auto 4.8 % (2.6-8.5); Neutrophils Absolute Auto 11.6 K/mm3 (1.3-6.7); Neutrophils Percent Auto 83.4 % (45.5-73.1); Platelet Count Result 300 k/mm3 (150-375); Red Blood Count 6.14 M/mm3 (4.6-6.20); Red Cell Distribution Width 12.6 % (11.5-14.5); White Blood Count 13.9 K/mm3 (4.5-10.0)
[2024-10-18] MEDS: SODIUM CHLORIDE 0.9% IV 1,000 ML 999 ML IV CONT (08:07)
[2024-10-18] MEDS: ONDANSETRON INJ 4 MG/2 ML VIAL IV PUSH (08:07)
[2024-10-18] MEDS: PANTOPRAZOLE SODIUM IV 40 MG VIAL IV PUSH (08:08)
[2024-10-18] MEDS: FAMOTIDINE 20 MG/2 ML VIAL IV PUSH (08:08)
[2024-10-18] MEDS: HYDROmorphone HCL INJ (*CRX) 1 MG/ML SYR IV PUSH (08:09)
--- OUTSIDE RECORDS SUMMARY | 2024-10-18 08:14 | XMS_ITS | Clinical Summary ---
Author Organization [facility] Address [address] [place] [address]. [place] [address] [place] [address] Care Team Providers Care Database Architect Name Role Phone Zach Coloey MD Primary Care Provider Allergies No known active allergies Medications desvenlafaxine [...] Department Care Team Description 08/24/2024 9:00 AM CROP OR GRAIN FARMWORKER Office Visit [facility] Medical Group Family & Internal Medicine [address] [phone] Zach Coolye MD Wart (Patient c/o wart on Rt [...] Sex Assigned at Male 08/05/2018 8:18 AM CROP OR GRAIN FARMWORKER Legal Sex Male 7:15 PM CDT Gender Identity Male 08/05/2018 8:18 AM CROP OR GRAIN FARMWORKER Sexual Orientation Straight 08/05/2018 8: 18 AM CROP OR GRAIN FARMWORKER Last Filed Vital Signs Vital Sign Reading Time Taken Comments Blood Pressure 130/84 08/24/2024 9:43 AM CROP OR GRAIN FARMWORKER Pulse 84 08/24/2024 9:43 AM CROP OR GRAIN FARMWORKER Temperature 37.2 ??C (99 ??F) 08/24/2024 9: 43 AM CROP OR GRAIN FARMWORKER Respiratory Rate 18 08/24/2024 9:43 AM CROP OR GRAIN FARMWORKER Oxygen Saturation 98% 08/24/2024 9:43 AM CROP OR GRAIN FARMWORKER Inhaled Oxygen Concentration - - Weight 110.6 kg (243 lb 14.4 oz) 08/24/2024 9:43 AM CROP OR GRAIN FARMWORKER Height 180.3 cm (5' 11 ) 08/24/2024 9:43 AM CROP OR GRAIN FARMWORKER Body Mass Index 34.02 08/24/2024 9:43 AM CROP OR GRAIN FARMWORKER Plan of Treatment Health Maintenance Due Date Last Done Comments Hepatitis C 2009 Hepatitis B Vaccines (1 of 3 - 19+ 3-dose series) 2010 Annual Physical 05/16/2021 05/16/2020 PHQ-2 (Physician [place]) 11/21/2023 11/20/2022 PHQ-2 (Physician [place]) 09/21/2024 11/20/2022 Influenza Adult (#1) 2025 06/13/2020 [...] BY NEUROLYTIC AGENT Routine 08/24/2024 9:00 AM CROP OR GRAIN FARMWORKER Other viral warts from Last 3 Months Results * Lesion Destruction (08/24/2024 9:00 AM CROP OR GRAIN FARMWORKER) Zach Castillo MD - 08/24/2024 9:00 AM CROP OR GRAIN FARMWORKER Zach Cooley MD ? 08/30/2024 ??9:20 PM [...] from Last 3 Months Insurance Care Teams Database Architect Relationship Specialty Start Date End Date Zach Cooley MD [address] [place] [address] PCP - General INTERNAL MEDICINE 10/19/17
[2024-10-18 08:30] LABS: Alanine Aminotransferase 17 U/L (6-50); Albumin Level 4.6 g/dL (3.5-5.1); Alkaline Phosphatase 76 U/L (38-126); Anion Gap 15 mmol/L (4-12); Aspartate Amino Transferase 18 U/L (17-59); Bilirubin,Total 1.4 mg/dL (0.2-1.3); Blood Urea Nitrogen 14 mg/dL (9-20); Calcium 9.3 mg/dL (8.4-10.2); Carbon Dioxide 20 mmol/L (22-30); Chloride 107 mmol/L (98-107); Estimated CRCL calculation 118 ml/min; Estimated Glomerular Filt Rate > 60; Glucose 119 mg/dL (65-110); Lipase 45 U/L (23-300); Potassium 3.6 mmol/L (3.4-5.0); Sodium 142 mmol/L (137-145)
[2024-10-18 09:00] VITALS: BP 130/77; PULSE 86; RESP 16; O2SAT 98
[2024-10-18 10:41] VITALS: BP 136/78; PULSE 86; RESP 16; TEMP 36.7; O2SAT 99
== END 2024-10-18 10:41 | disposition home or self-care (01) ==
PROVIDERS: Emergency Provider Emergency Medicine; PCP Internal Medicine
DX: R11.2 Nausea with vomiting, unspecified (principal); R10.13 Epigastric pain; R19.7 Diarrhea, unspecified; Z87.442 Personal history of urinary calculi
CPT/HCPCS: 36415; 74177; 80053; 83690; 85025; 86850; 86900; 86901; 96361; 96374; 96375; 99284; J1171; J2405; J2470; J7030; Q9967

== ENCOUNTER 2024-10-18 17:36 | Observation (INO) | payer OTHER, SELFPAY ==
--- OUTSIDE RECORDS SUMMARY | 2024-10-18 17:38 | XMS_ITS | Clinical Summary ---
Author Organization [facility] Address [address] [place] [address]. [place] [address] [place] [address] Care Team Providers Care Used Car Manager Name Role Phone Zach Cooley MD Primary Care Provider [phone] Allergies No known active allergies Medications desvenlafaxine [...] Department Care Team Description 08/24/2024 9:00 AM E/M ENGINEER Office Visit [facility] Family & Internal Medicine [address] [phone] Zach Cooley MD Wart (Patient c/o wart [...] Sex Assigned at Male 08/05/2018 8:18 AM E/M ENGINEER Legal Sex Male 7:15 PM CDT Gender Identity Male 08/05/2018 8:18 AM E/M ENGINEER Sexual Orientation Straight 08/05/2018 8: 18 AM E/M ENGINEER Last Filed Vital Signs Vital Sign Reading Time Taken Comments Blood Pressure 130/84 08/24/2024 9:43 AM E/M ENGINEER Pulse 84 08/24/2024 9:43 AM E/M ENGINEER Temperature 37.2 ??C (99 ??F) 08/24/2024 9: 43 AM E/M ENGINEER Respiratory Rate 18 08/24/2024 9:43 AM E/M ENGINEER Oxygen Saturation 98% 08/24/2024 9:43 AM E/M ENGINEER Inhaled Oxygen Concentration - - Weight 110.6 kg (243 lb 14.4 oz) 08/24/2024 9:43 AM E/M ENGINEER Height 180.3 cm (5' 11 ) 08/24/2024 9:43 AM E/M ENGINEER Body Mass Index 34.02 08/24/2024 9:43 AM E/M ENGINEER Plan of Treatment Health Maintenance Due Date Last Done Comments Hepatitis C 2009 Hepatitis B Vaccines (1 of 3 - 19+ 3-dose series) 2010 Annual Physical 05/16/2021 05/16/2020 PHQ-2 (Physician [place]) 11/21/2023 11/20/2022 PHQ-2 (Physician [place]) 09/21/2024 11/20/2022 Influenza Adult (#1) 2025 06/13/2020 [...] BY NEUROLYTIC AGENT Routine 08/24/2024 9:00 AM E/M ENGINEER Other viral warts from Last 3 Months Results * Lesion Destruction (08/24/2024 9:00 AM E/M ENGINEER) Zach Castillo MD - 08/24/2024 9:00 AM E/M ENGINEER Zach Cooley MD ? 08/30/2024 ??9:20 PM [...] from Last 3 Months Insurance Care Teams Used Car Manager Relationship Specialty Start Date End Date Zach Cooley MD [address] [place] [address] PCP - General INTERNAL MEDICINE 10/19/17
[2024-10-18 17:39] VITALS: BP 115/72; PULSE 135; RESP 20; TEMP 36.3; O2SAT 99
--- NOTE | 2024-10-18 18:14 | ED.GENADULT ---
HPI - General Adult General Chief complaint: Abdominal Pain <Paloma Duran January, TABULATING MACHINE MECHANIC - Last Filed: 10/18/24 18:39> Stated complaint: abdominal pain <Paloma Duran January, - Last Filed: 10/18/24 18:39> Time Seen by Provider: 10/18/24 18:14 <Paloma Duran January, - Last Filed: 10/18/24 18:39> Focused HPI: Kel Cheng is a 33 y/o male who presents today with complaints of having upper abdominal pain. He states that he was here earlier and d/c home and states he is still having vomiting/ the nausea medication is not helping. He states he started to have blood in his vomit and also having diarrhea Denies fevers. GENERAL: Well-appearing, well-nourished, and in no acute distress. HEAD: Normocephalic, atraumatic. CHEST: Clear to auscultation. ?No respiratory distress. HEART: Regular rate and rhythm.? NEURO: ?Alert and oriented x3. Patient screened in triage and initial orders placed.? ?Additional care and disposition to be based upon?diagnostic testing and treatment. <Paloma Duran January, - Last Filed: 10/18/24 18:39> History of Present Illness HPI narrative: Agree with the HPI above <Tung Arzate MD - Last Filed: 10/18/24 23:32> Related Data Home medications: Home Medications ?Medication ?Instructions ?Recorded ?Confirmed ?Last Taken ?Type desvenlafaxine succinate 50 mg 50 mg PO DAILY 02/07/23 02/07/23 Unknown History tablet,extended release 24 hr <Paloma Duran January, - Last Filed: 10/18/24 18:39> Allergies/adverse reactions: Allergies Allergy/AdvReac Type Severity Reaction Status Date / Time No Known Allergies Allergy Verified 10/18/24 17:38 <Paloma Duran January, - Last Filed: 10/18/24 18:39> Review of Systems Review of Systems: As reviewed above in HPI <Tung Arzate MD - Last Filed: 10/18/24 23:32> PMFSH Past Medical History Medical History: Medical History Urolithiasis <Paloma Duran January, TABULATING MACHINE MECHANIC - Last Filed: 10/18/24 18:39> Surgical History Surgical History: Surgical History History of urethral stent <Paloma Alan, TABULATING MACHINE MECHANIC - Last Filed: 10/18/24 18:39> Family History Family History: Family History Grandparent Family history of Alzheimer's disease <Paloma Duran January, TABULATING MACHINE MECHANIC - Last Filed: 10/18/24 18:39> Social History Social History: Social History Smoking status: Never smoker Alcohol intake: never <Paloma Duran January, TABULATING MACHINE MECHANIC - Last Filed: 10/18/24 18:39> Exam Narrative: GENERAL: Uncomfortable appearing but not any acute distress, answering all questions appropriately HEAD: [Normocephalic, atraumatic.] EYES: [PERRLA and EOMI.] ENT: Nares clear, no rhinorrhea or epistaxis. Mucous membranes moist. NECK: Supple. CHEST: [Clear to auscultation. No respiratory distress.] HEART: Normal perfused extremities, 2+ radial pulses. No murmur heard. Tachycardic pulse but regular rate ABDOMEN: [Soft, nondistended], mildly tender to palpation without any peritonitis or rigidity, [No rigidity or guarding] EXTREMITIES: Normal range of motion. [No edema.] SKIN: Warm, dry, no rash. NEURO: [No focal deficits]. Alert and oriented [x3.] PSYCH: [Normal mood and affect.] <Tung Arzate MD - Last Filed: 10/18/24 23:32> Course Vital Signs Vital signs: Vital Signs Temperature 36.3 C L 10/18/24 17:39 Pulse Rate 135 H 10/18/24 17:39 Respiratory Rate 20 10/18/24 17:39 Blood Pressure 115/72 10/18/24 17:39 Pulse Oximetry 99 10/18/24 17:39 Oxygen Delivery Room Air 10/18/24 17:39 Temperature 36.3 C L 10/18/24 17:39 Pulse Rate 111 H 10/18/24 23:05 Respiratory Rate 17 10/18/24 23:05 Blood Pressure 104/60 10/18/24 23:05 Pulse Oximetry 96 10/18/24 23:05 Oxygen Delivery Room Air 10/18/24 17:39 <Paloma Alan APRN - Last Filed: 10/18/24 18:39> Vital Signs Temperature 36.3 C L 10/18/24 17:39 Pulse Rate 135 H 10/18/24 17:39 Respiratory Rate 20 10/18/24 17:39 Blood Pressure 115/72 10/18/24 17:39 Pulse Oximetry 99 10/18/24 17:39 Oxygen Delivery Room Air 10/18/24 17:39 Temperature 36.3 C L 10/18/24 17:39 Pulse Rate 111 H 10/18/24 23:05 Respiratory Rate 17 10/18/24 23:05 Blood Pressure 104/60 10/18/24 23:05 Pulse Oximetry 96 10/18/24 23:05 Oxygen Delivery Room Air 10/18/24 17:39 <Tung Arzate MD - Last Filed: 10/18/24 23:32> Medical Decision Making MDM Narrative Medical decision making narrative: 33-year-old male who is otherwise healthy presenting to the emergency department for repeat evaluation hours after being discharged from the same ER. Patient was seen for bloody diarrhea with mucus and diarrhea as well as having some hematemesis. Patient went home after having symptomatic improvement in the ER and unremarkable workup with normal hemoglobin and CT scan showing fluid-filled bowel loops consistent with gastroenteritis/diarrheal illness. Patient returns with persistent and worsening vomiting. He shows me pictures on his cell phone that look like hematemesis with streaks of bright red blood as well as diarrhea that appears to have mucus with yellowing and bloody streaks as well. He has no family history of ulcerative colitis or inflammatory bowel disease. He has no personal history of inflammatory bowel disease or any history of gastroenteritis like this in the past. Does not take NSAIDs or any kind ibuprofen her pain medication therapies. Does not drink alcohol aside from social interactions. He is otherwise young and healthy but is tachycardic with a mildly tender abdomen. Considerations presently are for an inflammatory bowel disease, gastroenteritis, colitis, other nonspecific infectious or inflammatory diarrhea. I did review his CT scan from earlier which showed no acute intra-abdominal emergencies. He was given fluid hydration with improvement his pulse, workup shows hemoconcentration but no significant drop in his hemoglobin. White count and hemoglobin both [place], mildly elevated anion gap but no significant acidosis. Normal renal function panel. T bili slightly elevated 1.6 but otherwise unremarkable LFTs. Electrolytes normal. Negative lipase. Patient was given Pepcid, Protonix, Reglan, Benadryl, fluid bolus and Dilaudid for pain control. At this point I consulted GI Dr. Ortez for assistance and recommendations. Patient will be admitted to the hospitalist service for GI evaluation and potential intervention such as endoscopy. Awaiting consultation call from hospitalist. Spoke with the hospitalist Dr. Reyez who accepted the patient to a [facility] bed and recommended starting him on antibiotics and Solu-Medrol for potential inflammatory infectious diarrhea, gastroenteritis. He was started on ciprofloxacin, Flagyl, Solu-Medrol 40 mg IV. Patient was re-evaluated had improvement in his heart rate. He will be admitted to a telemetry monitored bed. <Tung Arzate MD - Last Filed: 10/18/24 23:32> Medical Records Medical records reviewed: Yes I reviewed the external patient's medical records. <Tung Arzate MD - Last Filed: 10/18/24 23:32> Vital Signs Vital Signs: Vital Signs Temperature 36.3 C L 10/18/24 17:39 Pulse Rate 135 H 10/18/24 17:39 Respiratory Rate 20 10/18/24 17:39 Blood Pressure 115/72 10/18/24 17:39 Pulse Oximetry 99 10/18/24 17:39 Oxygen Delivery Room Air 10/18/24 17:39 Temperature 36.3 C L 10/18/24 17:39 Pulse Rate 111 H 10/18/24 23:05 Respiratory Rate 17 10/18/24 23:05 Blood Pressure 104/60 10/18/24 23:05 Pulse Oximetry 96 10/18/24 23:05 Oxygen Delivery Room Air 10/18/24 17:39 <Paolma Alan APRN - Last Filed: 10/18/24 18:39> Vital Signs Temperature 36.3 C L 10/18/24 17:39 Pulse Rate 135 H 10/18/24 17:39 Respiratory Rate 20 10/18/24 17:39 Blood Pressure 115/72 10/18/24 17:39 Pulse Oximetry 99 10/18/24 17:39 Oxygen Delivery Room Air 10/18/24 17:39 Temperature 36.3 C L 10/18/24 17:39 Pulse Rate 111 H 10/18/24 23:05 Respiratory Rate 17 10/18/24 23:05 Blood Pressure 104/60 10/18/24 23:05 Pulse Oximetry 96 10/18/24 23:05 Oxygen Delivery Room Air 10/18/24 17:39 <Tung Arzate MD - Last Filed: 10/18/24 23:32> Lab Data Lab results reviewed: Yes I reviewed the patient's lab results. <Tung Arzate MD - Last Filed: 10/18/24 23:32> Result diagrams: 10/18/24 21:50 10/18/24 21:50 <Paloma Alan APRN - Last Filed: 10/18/24 18:39> Labs: Lab Results 10/18/24 Range/Units 21:50 WBC 15.4 H (4.5-10.0) K/mm3 RBC 6.59 H (4.6-6.20) M/mm3 Hgb 20.1 H (14.0-18.0) g/dL Hct 55.3 H (42.0-52.0) % MCV 83.9 (80-100) fl MCH 30.5 (26-34) pg MCHC 36.3 H (32-36) g/dl RDW 13.4 (11.5-14.5) % Plt Count 353 (150-375) k/mm3 MPV 10.5 H (7.4-10.4) fl Immature Gran % (Auto) 0.4 (0-0.5) % Neut % (Auto) 73.9 H (45.5-73.1) % Lymph % (Auto) 13.1 L (18.3-44.2) % [place] % (Auto) 10.2 H (2.6-8.5) % Eos % (Auto) 2.2 (0-4.4) % Baso % (Auto) 0.2 (0.2-1.2) % Lymph # (Auto) 2.02 (0.9-3.2) K/mm3 [place] # (Auto) 1.6 H (0.1-0.6) K/mm3 Eos # (Auto) 0.3 (0-0.3) K/mm3 Baso # (Auto) 0.0 (0.0-0.1) K/mm3 Abs Immat Gran (auto) 0.06 H (0.00-0.031) K/mm3 Absolute Neuts (auto) 11.4 H (1.3-6.7) K/mm3 Absolute Nucleated RBC 0.000 (0.0-0.012) K/mm3 Nucleated RBC % 0.0 (0.0-0.2) % Sodium 141 (137-145) mmol/L Potassium 3.8 (3.4-5.0) mmol/L Chloride 105 (98-107) mmol/L Carbon Dioxide 20 L (22-30) mmol/L Anion Gap 16 H (4-12) mmol/L BUN 14 (9-20) mg/dL Creatinine 1.30 (0.7-1.3) mg/dL Estim Creat Clear Calc 90 ml/min Estimated GFR > 60 (59 - ) Glucose 109 (65-110) mg/dL Calcium 9.0 (8.4-10.2) mg/dL Total Bilirubin 1.6 H (0.2-1.3) mg/dL AST 15 L (17-59) U/L ALT 18 (6-50) U/L Alkaline Phosphatase 75 (38-126) U/L Total Protein 8.0 (6.3-8.2) g/dL Albumin 4.3 (3.5-5.1) g/dL Lipase 33 (23-300) U/L <Paloma Alan, TABULATING MACHINE MECHANIC - Last Filed: 10/18/24 18:39> Lab Results 10/18/24 Range/Units 21:50 WBC 15.4 H (4.5-10.0) K/mm3 RBC 6.59 H (4.6-6.20) M/mm3 Hgb 20.1 H (14.0-18.0) g/dL Hct 55.3 H (42.0-52.0) % MCV 83.9 (80-100) fl MCH 30.5 (26-34) pg MCHC 36.3 H (32-36) g/dl RDW 13.4 (11.5-14.5) % Plt Count 353 (150-375) k/mm3 MPV 10.5 H (7.4-10.4) fl Immature Gran % (Auto) 0.4 (0-0.5) % Neut % (Auto) 73.9 H (45.5-73.1) % Lymph % (Auto) 13.1 L (18.3-44.2) % [place] % (Auto) 10.2 H (2.6-8.5) % Eos % (Auto) 2.2 (0-4.4) % Baso % (Auto) 0.2 (0.2-1.2) % Lymph # (Auto) 2.02 (0.9-3.2) K/mm3 [place] # (Auto) 1.6 H (0.1-0.6) K/mm3 Eos # (Auto) 0.3 (0-0.3) K/mm3 Baso # (Auto) 0.0 (0.0-0.1) K/mm3 Abs Immat Gran (auto) 0.06 H (0.00-0.031) K/mm3 Absolute Neuts (auto) 11.4 H (1.3-6.7) K/mm3 Absolute Nucleated RBC 0.000 (0.0-0.012) K/mm3 Nucleated RBC % 0.0 (0.0-0.2) % Sodium 141 (137-145) mmol/L Potassium 3.8 (3.4-5.0) mmol/L Chloride 105 (98-107) mmol/L Carbon Dioxide 20 L (22-30) mmol/L Anion Gap 16 H (4-12) mmol/L BUN 14 (9-20) mg/dL Creatinine 1.30 (0.7-1.3) mg/dL Estim Creat Clear Calc 90 ml/min Estimated GFR > 60 (59 - ) Glucose 109 (65-110) mg/dL Calcium 9.0 (8.4-10.2) mg/dL Total Bilirubin 1.6 H (0.2-1.3) mg/dL AST 15 L (17-59) U/L ALT 18 (6-50) U/L Alkaline Phosphatase 75 (38-126) U/L Total Protein 8.0 (6.3-8.2) g/dL Albumin 4.3 (3.5-5.1) g/dL Lipase 33 (23-300) U/L <Tung Arzate MD - Last Filed: 10/18/24 23:32> Discharge Plan Discharge Clinical Impression: Bloody diarrhea, Bloody emesis, Gastroenteritis <Paloma Duran January TABULATING MACHINE MECHANIC - Last Filed: 10/18/24 18:39> Patient Disposition: Still a Patient <Paloma Duran January TABULATING MACHINE MECHANIC - Last Filed: 10/18/24 18:39> Condition: Stable <Paloma Duran January - Last Filed: 10/18/24 18:39> Instructions: Antibiotic Form <Paloma Duran January TABULATING MACHINE MECHANIC - Last Filed: 10/18/24 18:39> Patient Language: Polish <Paloma Duran January TABULATING MACHINE MECHANIC - Last Filed: 10/18/24 18:39> Prescriptions: No Action desvenlafaxine succinate 50 mg tablet extended release 24 hr 50 mg PO DAILY ofloxacin 0.3 % drops See Rx Instructions .ROUTE .COMPLEX Qty: 10 0RF Rx Instructions: put 1-2 drps into affected eye(s) every 2-4 h x 2 days, then 1-2 drps 4 times/day days 3-7 omeprazole 20 mg capsule,delayed release(DR/EC) 20 mg PO DAILY 14 Days Qty: 14 0RF ondansetron 4 mg tablet,disintegrating 4 mg PO Q8H PRN (Reason: nausea and vomiting) Qty: 14 0RF hydrocodone-acetaminophen 5-325 mg tablet 1 tablet PO Q12H PRN (Reason: pain) Qty: 14 0RF <Paloma Duran January, - Last Filed: 10/18/24 18:39> Follow-up/Referrals: Lenora,Zach Bailey MD [Primary Care Provider] - <Paloma Alan TABULATING MACHINE MECHANIC - Last Filed: 10/18/24 18:39> Time of Disposition: 23:32 <Paloma Alan TABULATING MACHINE MECHANIC - Last Filed: 10/18/24 18:39> 23:32 <Tung Arzate MD - Last Filed: 10/18/24 23:32>
[2024-10-18 21:55] LABS: Basophils Percent Auto 0.2 % (0.2-1.2); Eosinophils Absolute Auto 0.3 K/mm3 (0-0.3); Eosinophils Percent Auto 2.2 % (0-4.4); Hematocrit 55.3 % (42.0-52.0); Hemoglobin 20.1 g/dL (14.0-18.0); Immature Granulocyte Absolute 0.06 K/mm3 (0.00-0.031); Immature Granulocyte Percent A 0.4 % (0-0.5); Lymphocytes Absolute Auto 2.02 K/mm3 (0.9-3.2); Lymphocytes Percent Auto 13.1 % (18.3-44.2); Mean Corpuscular HGB Conc 36.3 g/dl (32-36); Mean Corpuscular Hemoglobin 30.5 pg (26-34); Mean Corpuscular Volume 83.9 fl (80-100); Mean Platelet Volume 10.5 fl (7.4-10.4); Monocytes Absolute Auto 1.6 K/mm3 (0.1-0.6); Monocytes Percent Auto 10.2 % (2.6-8.5); Neutrophils Absolute Auto 11.4 K/mm3 (1.3-6.7); Neutrophils Percent Auto 73.9 % (45.5-73.1); Platelet Count Result 353 k/mm3 (150-375); Red Blood Count 6.59 M/mm3 (4.6-6.20); Red Cell Distribution Width 13.4 % (11.5-14.5); White Blood Count 15.4 K/mm3 (4.5-10.0)
[2024-10-18 22:07] LABS: Alanine Aminotransferase 18 U/L (6-50); Albumin Level 4.3 g/dL (3.5-5.1); Alkaline Phosphatase 75 U/L (38-126); Anion Gap 16 mmol/L (4-12); Aspartate Amino Transferase 15 U/L (17-59); Bilirubin,Total 1.6 mg/dL (0.2-1.3); Blood Urea Nitrogen 14 mg/dL (9-20); Carbon Dioxide 20 mmol/L (22-30); Chloride 105 mmol/L (98-107); Estimated CRCL calculation 90 ml/min; Estimated Glomerular Filt Rate > 60; Glucose 109 mg/dL (65-110); Lipase 33 U/L (23-300); Potassium 3.8 mmol/L (3.4-5.0); Sodium 141 mmol/L (137-145)
--- NOTE | 2024-10-18 22:07 | ECG_ITS ---
Test Date: 2024-10-18 23:34:28 Measurements Intervals [place] Rate: 91 P: 36 NC: 188 QRS: 72 QRSD: 90 T: -4 QT: 344 QTc: 424 Interpretive Statements SINUS RHYTHM No previous ECG available for comparison Electronically Signed On 10-19-2024 15:55:36 REGIONAL MEDICAL DIRECTOR by Diya Francisco M.D.
--- OUTSIDE RECORDS SUMMARY | 2024-10-18 22:19 | XMS_ITS | Clinical Summary ---
Author Organization [facility] Address [address] [place] [address]. [place] [address] [place] [address] Care Team Providers Care C 40A Crew Chief Name Role Phone Zach Cooley MD Primary Care Provider [phone] Allergies No known active allergies Medications desvenlafaxine [...] Department Care Team Description 08/24/2024 9:00 AM UTILITY BILL COMPLAINTS INVESTIGATOR Office Visit [facility] Family & Internal Medicine [address] [phone] Zach Cooley MD Wart (Patient c/o wart [...] Sex Assigned at Male 08/05/2018 8:18 AM UTILITY BILL COMPLAINTS INVESTIGATOR Legal Sex Male 7:15 PM CDT Gender Identity Male 08/05/2018 8:18 AM UTILITY BILL COMPLAINTS INVESTIGATOR Sexual Orientation Straight 08/05/2018 8: 18 AM UTILITY BILL COMPLAINTS INVESTIGATOR Last Filed Vital Signs Vital Sign Reading Time Taken Comments Blood Pressure 130/84 08/24/2024 9:43 AM UTILITY BILL COMPLAINTS INVESTIGATOR Pulse 84 08/24/2024 9:43 AM UTILITY BILL COMPLAINTS INVESTIGATOR Temperature 37.2 ??C (99 ??F) 08/24/2024 9: 43 AM UTILITY BILL COMPLAINTS INVESTIGATOR Respiratory Rate 18 08/24/2024 9:43 AM UTILITY BILL COMPLAINTS INVESTIGATOR Oxygen Saturation 98% 08/24/2024 9:43 AM UTILITY BILL COMPLAINTS INVESTIGATOR Inhaled Oxygen Concentration - - Weight 110.6 kg (243 lb 14.4 oz) 08/24/2024 9:43 AM UTILITY BILL COMPLAINTS INVESTIGATOR Height 180.3 cm (5' 11 ) 08/24/2024 9:43 AM UTILITY BILL COMPLAINTS INVESTIGATOR Body Mass Index 34.02 08/24/2024 9:43 AM UTILITY BILL COMPLAINTS INVESTIGATOR Plan of Treatment Health Maintenance Due Date Last Done Comments Hepatitis C 2009 Hepatitis B Vaccines (1 of 3 - 19+ 3-dose series) 2010 Annual Physical 05/16/2021 05/16/2020 PHQ-2 (Physician [place]) 11/21/2023 11/20/2022 PHQ-2 (Physician [place]) 09/21/2024 11/20/2022 Influenza Adult (#1) 2025 06/13/2020 [...] BY NEUROLYTIC AGENT Routine 08/24/2024 9:00 AM UTILITY BILL COMPLAINTS INVESTIGATOR Other viral warts from Last 3 Months Results * Lesion Destruction (08/24/2024 9:00 AM UTILITY BILL COMPLAINTS INVESTIGATOR) Zach Castillo MD - 08/24/2024 9:00 AM UTILITY BILL COMPLAINTS INVESTIGATOR Zach Cooley MD ? 08/30/2024 ??9:20 PM [...] from Last 3 Months Insurance Care Teams C 40A Crew Chief Relationship Specialty Start Date End Date Zach Cooley MD [address] [place] [address] PCP - General INTERNAL MEDICINE 10/19/17
[2024-10-18 23:05] VITALS: BP 104/60; PULSE 111; RESP 17; O2SAT 96
[2024-10-18] MEDS: PANTOPRAZOLE 40 MG TABLET 80 MG PO (23:07)
[2024-10-18] MEDS: SODIUM CHLORIDE 0.9% IV 1,000 ML 999 ML IV CONT (23:07)
[2024-10-18] MEDS: METOCLOPRAMIDE HCL INJ 10 MG/2 ML VIAL IV PUSH (23:08)
[2024-10-18] MEDS: diphenhydrAMINE HCl INJ 50 MG/ML VIAL 25 MG IV PUSH (23:08)
[2024-10-18] MEDS: LACTATED RINGERS 1,000 ML 999 ML IV CONT (23:08)
[2024-10-18] MEDS: HYDROmorphone HCL INJ (*CRX) 1 MG/ML SYR 0.5 MG IV PUSH (23:09)
[2024-10-18] MEDS: metroNIDAZOLE 500 MG TABLET PO (23:35)
[2024-10-18] MEDS: CIPROFLOXACIN 400 MG/D5W 200ML 200 ML 200 MG IVPB (23:35)
[2024-10-18] MEDS: methylPREDNISolone SOD SUCC 40 MG VIAL IV PUSH (23:35)
--- NOTE | 2024-10-18 23:46 | P.HP_ITS ---
H&P: HPI History of Present Illness Date/Time: 10/18/24 23:46 Chief Complaint: Diarrhea Narrative: This is a 33-year-old male with no significant past medical history. Patient presents to the emergency room due to several episodes of diarrhea, nausea, vomiting, blood in the stools. Patient was recently started on [place]. 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 Denies eating raw meat or seafood or fish, denies any recent travel, denies outdoor activities. Patient has been in his usual state of health up until this time this started last Thursday with episode of numerous vomiting and diarrhea. Preliminary workup was significant for CT of abdomen and pelvis with fluid scattered throughout the colon consistent with nonspecific diarrhea. EXAMINATION: CT abdomen pelvis w con DATE: 10/18/2024 08:45 INDICATION: Abdominal pain TECHNIQUE: Computed tomography (CT) of the abdomen and pelvis was performed with 100 mL Omnipaque-350 intravenous contrast. Automated exposure control and iterative reconstruction technique were employed. The dose-length product was 1002.81 mGy-cm. COMPARISON: 02/19/2023 FINDINGS: Mild dependent atelectasis in the bilateral lower lobes, right greater than left. Heart size is normal. No pericardial or pleural effusion. Liver, gallbladder, spleen, pancreas, bilateral adrenal glands and kidneys are normal. There is fluid scattered throughout the colon consistent with nonspecific diarrhea. Small bowel and appendix are normal. Bladder is normal. No free intraperitoneal gas or fluid. No pathologically enlarged abdominal or pelvic lymphadenopathy. Couple small bone islands in the pelvis and proximal left femur. Minimal scattered degenerative skeletal changes. IMPRESSION: 1. Fluid scattered throughout the colon consistent with nonspecific diarrhea. Correlate clinically for gastroenteritis. No other acute intra-abdominal/pelvic process. Review of Systems Review of Systems: Nausea, vomiting, diarrhea too numerous to count PMFSH Past Medical History Medical History Urolithiasis Surgical History Surgical History History of urethral stent Family History Family History Grandparent Family history of Alzheimer's disease Social History Social History Smoking status: Never smoker Alcohol intake: never Meds Home Medications and Allergies Home Medications ?Medication ?Instructions ?Recorded ?Confirmed ?Type desvenlafaxine succinate 50 mg 50 mg PO DAILY 02/07/23 02/07/23 History tablet,extended release 24 hr ofloxacin 0.3 % eye drops See Rx Instructions EACH EYE 02/28/23 Rx .COMPLEX #10 mL hydrocodone 5 mg-acetaminophen 325 1 tablet PO Q12H PRN pain #14 tabs 10/18/24 Rx mg tablet omeprazole 20 mg capsule,delayed 20 mg PO DAILY 14 days #14 caps 10/18/24 Rx release ondansetron 4 mg disintegrating 4 mg PO Q8H PRN nausea and 10/18/24 Rx tablet vomiting #14 tabs Allergies Allergy/AdvReac Type Severity Reaction Status Date / Time No Known Allergies Allergy Verified 10/18/24 17:38 Vital Signs Vital Signs - 24 hr 10/18/24 17:39 10/18/24 23:05 Temperature 97.4 F L Pulse Rate 135 H 111 H Respiratory Rate 20 17 Blood Pressure 115/72 104/60 Pulse Oximetry 99 96 Oxygen Delivery Room Air Exam Narrative: Patient is laying in stretcher Const: General: comfortable, no acute distress, well developed, alert, awake and average body habitus Nutritional Appearance: average body habitus Orientation/consciousness: patient oriented x3 Other: Well-appearing HENMT: Head: normal to inspection, normocephalic and atraumatic Ears: hearing grossly normal bilaterally Face/Nose/Sinus: normal facial exam Face and sinus: normal facial exam Eyes: General: appearance normal, both eyes and all related structures Pupils: Equal, round and reactive pupils present EOM: EOMs intact bilaterally Neck: Neck: full ROM, no lymphadenopathy and no JVD Thyroid: thyroid normal Lymphatic: no lymphadenopathy noted Resp: Effort & Inspection: normal respiratory effort and able to speak in c omplete sentences Auscultation: clear to auscultation bilaterally Cardio: Jugular venous distension: no JVD Rate: regular rate Rhythm: regular rhythm Heart sounds: S1 normal heart sound present and S2 normal heart sound present GI: GI Palp: Yes Soft to palpation and Yes No hepatosplenomegaly present : General: Yes deferred Skin: Rashes: no rashes Wounds: no wounds Neuro: General: patient oriented x3 and CN's II-XI intact bilaterally Cranial nerves: Yes CN's II-XII intact bilaterally and Yes Equal, round and reactive pupils present Cognition (Neuro): normal cognition Speech: normal speech Gait exam (Neuro): Normal gait present Motor exam (neuro): 5/5 motor strength present throughout Extrem: General: normal to inspection, full ROM, no joint enlargement and no pedal edema H&P: Results Labs Labs: Short CBC 10/18/24 Range/Units 21:50 WBC 15.4 H (4.5-10.0) K/mm3 Hgb 20.1 H (14.0-18.0) g/dL Hct 55.3 H (42.0-52.0) % Plt Count 353 (150-375) k/mm3 BMP 10/18/24 21:50 Sodium 141 Potassium 3.8 Chloride 105 Carbon Dioxide 20 L BUN 14 Creatinine 1.30 Glucose 109 Calcium 9.0 Liver Function 10/18/24 Range/Units 21:50 Total Bilirubin 1.6 H (0.2-1.3) mg/dL AST 15 L (17-59) U/L ALT 18 (6-50) U/L Alkaline Phosphatase 75 (38-126) U/L Albumin 4.3 (3.5-5.1) g/dL Assessment and Plan Assessment and plan (1) Nausea vomiting and diarrhea: Code(s): R11.2 - Nausea with vomiting, unspecified; R19.7 - Diarrhea, unspecified Status: Acute Assessment and Plan: Likely secondary to [place]jaro side-effect NPO (2) Abdominal pain, epigastric: Code(s): R10.13 - Epigastric pain Status: Acute Assessment and Plan: As 1. Supportive care (3) Bloody diarrhea: Code(s): R19.7 - Diarrhea, unspecified Status: Acute Assessment and Plan: Stool studies in progress Patient empirically started on ciprofloxacin and Flagyl Doubtful of infectious diarrhea Likely secondary to Mounjaro Hospitalist MIPS Advance Care Plan I have confirmed that the patient's Advanced Care Plan is present, code status is documented, or surrogate decision maker is listed in patient medical record.: Yes Medication Reconciliation I have utilized all available resources to obtain, update and review the patients current medications (includes all prescriptions, OTC, herbals, cannabis, and nutritional supplements).: Yes
[2024-10-18 23:55] VITALS: BP 123/75; PULSE 100; RESP 17; O2SAT 95
[2024-10-19] VITALS (11 sets, daily range): BP systolic 109–128; BP diastolic 58–69; PULSE 81–100; RESP 16–20; TEMP 36.6–36.7; O2SAT 94–99; BMI 32.0
[2024-10-19] MEDS: LACTATED RINGERS 1,000 ML 125 ML IV CONT ×3 (00:44→17:16)
--- NOTE | 2024-10-19 02:31 | PC.NURSE ---
Patient and belongings moved to room 6.
[2024-10-19 06:50] LABS: Basophils Percent Auto 0.1 % (0.2-1.2); Eosinophils Absolute Auto 0.1 K/mm3 (0-0.3); Eosinophils Percent Auto 1.1 % (0-4.4); Hematocrit 46.8 % (42.0-52.0); Hemoglobin 16.7 g/dL (14.0-18.0); Immature Granulocyte Absolute 0.06 K/mm3 (0.00-0.031); Immature Granulocyte Percent A 0.6 % (0-0.5); Lymphocytes Absolute Auto 1.27 K/mm3 (0.9-3.2); Lymphocytes Percent Auto 12.8 % (18.3-44.2); Mean Corpuscular HGB Conc 35.7 g/dl (32-36); Mean Corpuscular Hemoglobin 30.8 pg (26-34); Mean Corpuscular Volume 86.3 fl (80-100); Mean Platelet Volume 10.7 fl (7.4-10.4); Monocytes Absolute Auto 0.2 K/mm3 (0.1-0.6); Monocytes Percent Auto 1.6 % (2.6-8.5); Neutrophils Absolute Auto 8.3 K/mm3 (1.3-6.7); Neutrophils Percent Auto 83.8 % (45.5-73.1); Platelet Count Result 271 k/mm3 (150-375); Red Blood Count 5.42 M/mm3 (4.6-6.20); Red Cell Distribution Width 12.8 % (11.5-14.5); White Blood Count 9.9 K/mm3 (4.5-10.0)
[2024-10-19 06:56] LABS: Anion Gap 9 mmol/L (4-12); Blood Urea Nitrogen 15 mg/dL (9-20); Carbon Dioxide 21 mmol/L (22-30); Chloride 107 mmol/L (98-107); Estimated CRCL calculation 112 ml/min; Estimated Glomerular Filt Rate > 60; Glucose 136 mg/dL (65-110); Magnesium 1.8 mg/dL (1.6-2.3); Phosphorus 4.2 mg/dL (2.5-4.5); Potassium 4.2 mmol/L (3.4-5.0); Sodium 137 mmol/L (137-145)
--- OUTSIDE RECORDS SUMMARY | 2024-10-19 08:31 | XMS_ITS | Clinical Summary ---
Author Organization [facility] Address [address] [place] [address]. [place] [address] [place] [address] Care Team Providers Care Electroplating Technician Name Role Phone Zach Cooley MD Primary Care Provider [phone] Allergies No known active allergies Medications desvenlafaxine [...] Department Care Team Description 08/24/2024 9:00 AM STAVE INSPECTOR Office Visit [facility] Family & Internal Medicine [address] [phone] Zach Cooley MD Wart (Patient c/o wart [...] Sex Assigned at Male 08/05/2018 8:18 AM STAVE INSPECTOR Legal Sex Male 7:15 PM CDT Gender Identity Male 08/05/2018 8:18 AM STAVE INSPECTOR Sexual Orientation Straight 08/05/2018 8: 18 AM STAVE INSPECTOR Last Filed Vital Signs Vital Sign Reading Time Taken Comments Blood Pressure 130/84 08/24/2024 9:43 AM STAVE INSPECTOR Pulse 84 08/24/2024 9:43 AM STAVE INSPECTOR Temperature 37.2 ??C (99 ??F) 08/24/2024 9: 43 AM STAVE INSPECTOR Respiratory Rate 18 08/24/2024 9:43 AM STAVE INSPECTOR Oxygen Saturation 98% 08/24/2024 9:43 AM STAVE INSPECTOR Inhaled Oxygen Concentration - - Weight 110.6 kg (243 lb 14.4 oz) 08/24/2024 9:43 AM STAVE INSPECTOR Height 180.3 cm (5' 11 ) 08/24/2024 9:43 AM STAVE INSPECTOR Body Mass Index 34.02 08/24/2024 9:43 AM STAVE INSPECTOR Plan of Treatment Health Maintenance Due Date Last Done Comments Hepatitis C 2009 Hepatitis B Vaccines (1 of 3 - 19+ 3-dose series) 2010 Annual Physical 05/16/2021 05/16/2020 PHQ-2 (Physician [place] [facility] [place]) 11/21/2023 11/20/2022 PHQ-2 (Physician [place] [facility] [place]) 09/21/2024 11/20/2022 Influenza Adult (#1) 2025 06/13/2020 [...] BY NEUROLYTIC AGENT Routine 08/24/2024 9:00 AM STAVE INSPECTOR Other viral warts from Last 3 Months Results * Lesion Destruction (08/24/2024 9:00 AM STAVE INSPECTOR) Zach Castillo MD - 08/24/2024 9:00 AM STAVE INSPECTOR Zach Cooley MD ? 08/30/2024 ??9:20 PM [...] from Last 3 Months Insurance Care Teams Electroplating Technician Relationship Specialty Start Date End Date Zach Cooley MD [address] [place] [address] PCP - General INTERNAL MEDICINE 10/19/17
--- NOTE | 2024-10-19 08:36 | PM.IMPN ---
Progress Note: A&P Assessment and Plan (1) Nausea vomiting and diarrhea: Code(s): R11.2 - Nausea with vomiting, unspecified; R19.7 - Diarrhea, unspecified Status: Acute (2) Bloody emesis: Code(s): K92.0 - Hematemesis Status: Acute (3) Bloody diarrhea: Code(s): R19.7 - Diarrhea, unspecified Status: Acute (4) Abdominal pain, epigastric: Code(s): R10.13 - Epigastric pain Status: Acute Plan 33-year-old male with no significant past medical history. Patient presents to the emergency room due to several episodes of diarrhea, nausea, vomiting, blood in the stools. Patient was recently started on Munjaro. 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 Denies eating raw meat or seafood or fish, denies any recent travel, denies outdoor activities. Patient has been in his usual state of health up until this time this started last Thursday with episode of numerous vomiting and diarrhea. Preliminary workup was significant for CT of abdomen and pelvis with fluid scattered throughout the colon consistent with nonspecific diarrhea. Acute gastroenteritis Bloody diarrhea: Code(s): R19.7 - Diarrhea, unspecified Status: Acute Assessment and Plan: Patient's bloody diarrhea Patient received 1 dose of ciprofloxacin and Flagyl Order stool culture, C diff Need to rule out and her hemorrhage E coli. Chronic patient is afebrile, leukocytosis resolved, Hold antibiotics Continue supportive treatment Intractable Nausea vomiting and diarrhea: Code(s): R11.2 - Nausea with vomiting, unspecified; R19.7 - Diarrhea, unspecified Status: Acute Assessment and Plan: Likely secondary to Mounjaro side-effect NPO, advance to clear diet as tolerable Acute GI bleeding Patient has bloody stools and bloody vomiting yesterday Hemoglobin stable Consult GI for evaluation treatment Subjective Date/time seen: 10/19/24 08:36 Interval history: I saw and examined the patient in the ED today. Patient still has some cramping discomfort in the abdomen. Patient had 1 bowel movement. Patient had bloody bowel movements and bloody vomiting yesterday, which showed in his photos. Patient is afebrile, blood pressure stable, leukocytosis resolved. Exam Narrative: GENERAL: Pleasant, in no acute distress. Well-nourished. - EYES: EOMI. Anicteric. - HENT: Moist mucous membranes. - LUNGS: Clear to auscultation bilaterally, no wheezing, rhonchi, or rales. - CARDIOVASCULAR: Regular rate and rhythm. No murmur. No JVD. - ABDOMEN: Soft, epigastric tender and non-distended. No palpable masses. - EXTREMITIES: No edema. Peripheral pulses 2+. Non-tender. - NEUROLOGIC: No focal neurological deficits. CN II-XII grossly intact. - PSYCHIATRIC: Awake, Alert and oriented x 3. Appropriate mood and affect. - SKIN: No rashes or lesions. Warm. - LYMPH: No cervical lymphadenopathy. Objective Data Vital Signs Vital Signs: Vital Signs - 24 hr 10/18/24 17:39 10/18/24 23:05 10/18/24 23:55 Temperature 97.4 F L Pulse Rate 135 H 111 H 100 Respiratory Rate 20 17 17 Blood Pressure 115/72 104/60 123/75 Pulse Oximetry 99 96 95 Oxygen Delivery Room Air 10/19/24 00:47 10/19/24 02:33 10/19/24 03:25 Temperature Pulse Rate 96 98 100 Respiratory Rate 17 17 17 Blood Pressure 128/66 113/65 118/69 Pulse Oximetry 95 95 95 Oxygen Delivery 10/19/24 05:04 10/19/24 06:24 10/19/24 07:36 Temperature Pulse Rate 92 92 91 Respiratory Rate 17 18 16 Blood Pressure 113/61 114/62 118/64 Pulse Oximetry 94 94 95 Oxygen Delivery Intake/Output Intake/Output: Intake & Output 10/16/24 10/17/24 10/18/24 10/19/24 23:59 23:59 23:59 23:59 Intake Total 2200 Balance 2200 Meds/Results Medications: Active Medications Generic Name Dose Route Start Last Admin Trade Name Freq PRN Reason Stop Dose Admin Acetaminophen 650 mg 10/18/24 23:28 Acetaminophen 325 Mg Tablet PO Q4H PRN Mild Pain (1-3) or Fever Lactated Ringer's 1,000 mls @ 125 mls/hr 10/18/24 23:30 10/19/24 00:44 Lr - Lactated Ringers Iv IV CONT 125 mls/hr .Q8H JOSESITO Administration Ondansetron HCl 4 mg 10/18/24 23:28 Ondansetron Inj 4 Mg/2 Ml Vial IV PUSH Q4H PRN Nausea Pantoprazole Sodium 40 mg 10/19/24 09:00 Pantoprazole Sodium Iv 40 Mg Vial [facility] [place] [facility] Labs: Laboratory Results - last 24 hr 10/18/24 10/19/24 21:50 06:39 WBC 15.4 H 9.9 RBC 6.59 H 5.42 Hgb 20.1 H 16.7 D Hct 55.3 H 46.8 MCV 83.9 86.3 MCH 30.5 30.8 MCHC 36.3 H 35.7 RDW 13.4 12.8 Plt Count 353 271 MPV 10.5 H 10.7 H Immature Gran % (Auto) 0.4 0.6 H Neut % (Auto) 73.9 H 83.8 H Lymph % (Auto) 13.1 L 12.8 L Morris % (Auto) 10.2 H 1.6 L Eos % (Auto) 2.2 1.1 Baso % (Auto) 0.2 0.1 L Lymph # (Auto) 2.02 1.27 Morris # (Auto) 1.6 H 0.2 Eos # (Auto) 0.3 0.1 Baso # (Auto) 0.0 0.0 Abs Immat Gran (auto) 0.06 H 0.06 H Absolute Neuts (auto) 11.4 H 8.3 H Absolute Nucleated RBC 0.000 0.000 Nucleated RBC % 0.0 0.0 Sodium 141 137 Potassium 3.8 4.2 Chloride 105 107 Carbon Dioxide 20 L 21 L Anion Gap 16 H 9 BUN 14 15 Creatinine 1.30 1.03 Estim Creat Clear Calc 90 112 Estimated GFR > 60 > 60 Glucose 109 136 H Calcium 9.0 8.0 L Phosphorus 4.2 Magnesium 1.8 Total Bilirubin 1.6 H AST 15 L ALT 18 Alkaline Phosphatase 75 Total Protein 8.0 Albumin 4.3 Lipase 33
[2024-10-19] MEDS: PANTOPRAZOLE SODIUM IV 40 MG VIAL IV PUSH (09:06)
[2024-10-19] MEDS: ONDANSETRON INJ 4 MG/2 ML VIAL IV PUSH ×2 (09:07→14:35)
[2024-10-19 12:21] LABS: Amphetamine Screen Urine Negative (Negative); Barbiturate Screen Urine Negative (Negative); Benzodiazepines Screen Urine Negative (Negative); Cannabinoid Screen Urine Negative (Negative); Cocaine Screen Urine Negative (Negative); Methadone Screen Urine Negative (Negative); Opiate Screen Urine Positive (Negative); Phencyclidine Screen Urine Negative (Negative)
--- NOTE | 2024-10-19 15:09 | ADMGEN ---
This patient, Kel Cheng, was admitted to 3 Med Surg Room 312-01. Patient/family oriented to hospital policies and general routines including ID bracelet, bed and alarms, visiting hours, pain management, procedures, bathroom and other care routines, personal items, smoking policy, room service/diet, and visiting hours. Information on how to activate the Rapid Response Team has been discussed. Patient/Family are encouraged to report perceived risks to care and to ask questions if they do not understand what they are told or what they should do.
[2024-10-19] MEDS: DESVENLAFAXINE SUCCINATE 50 MG TAB.ER.24H PO (15:51)
--- NOTE | 2024-10-19 17:05 | WPDGICN ---
Assessment and Plan Assessment and plan (1) Nausea vomiting and diarrhea: Code(s): R11.2 - Nausea with vomiting, unspecified; R19.7 - Diarrhea, unspecified Status: Acute Assessment and Plan: possible gastroenteritis, ? infectious (pending stool samples), ? from glp1 continue with iv fluids (he was hemoconcentrated on admission)- improved after treatment ok to hold abx for now (2) Abdominal pain, epigastric: Code(s): R10.13 - Epigastric pain Status: Acute Assessment and Plan: improving (3) Bloody diarrhea: Code(s): R19.7 - Diarrhea, unspecified Status: Acute Assessment and Plan: possible colitis may benefit from colonoscopy in 1-2 months after resolution of acute event (4) Gastroenteritis: Code(s): K52.9 - Noninfective gastroenteritis and colitis, unspecified Status: Acute (5) Dehydration: Code(s): E86.0 - Dehydration Status: Acute Assessment and Plan: treated (6) Leukocytosis: Code(s): D72.829 - Elevated white blood cell count, unspecified Status: Acute GI Consult Note Consult date/time: 10/19/24 17:05 Reason for consult: n/v, diarrhea, abdominal pain HPI: Kel Cheng is a 33 year old male with no major comorbidities, about 3 weeks ago started using mounjaro for weight loss. Last Edilberto had 24 hours of intractable n/v with diarrhea but improved then yesterday again with similar symptoms, also noted some blood in stool and came to ER, sent home with medications but still was sick. CT scan noted changes consistent of diarrhea, no other findings, WBC 15k, hgb 20 (down to 16 after fluids). He is admitted for iv fluids and monitoring. Never had scopes. Pending stool samples. Review of Systems Constitutional: Constitutional: Reports lethargy Eyes: Eyes: Denies blurry vision ENT: Reports Normal hearing present Cardiovascular: Cardiovascular: Denies chest pain Respiratory: Respiratory: Denies cough Gastrointestinal: Gastrointestinal: Reports abdominal pain, Reports diarrhea, Reports nausea and Reports vomiting Genitourinary: Genitourinary: Denies dysuria Musculoskeletal: Musculoskeletal: Denies neck pain Integumentary/Breasts: Skin/Breast: Denies rash Neurologic: Denies Abnormal speech present Psychiatric: Psychiatric: Denies behavioral changes [facility] Past Medical History Medical History (Updated 10/19/24 @ 17:10 by Dylan Covarrubias MD) Leukocytosis Dehydration Urolithiasis Surgical History Surgical History History of urethral stent Family History Family History Grandparent Family history of Alzheimer's disease Social History Social History Smoking status: Never smoker Alcohol intake: never Do You Feel Safe in your Home?: Yes Lack of Transportation: No Lack of Food: Never True Current Housing: I Have Housing Concerned About Future Housing: No Difficulty Paying Gas/Electric Bills: No Difficulty Paying for Meds: No Currently Unemployed: No Education: Decline to Answer Difficulty w/ Childcare or Family Care: No Spiritual care concerns: No Meds Home Medications and Allergies Home Medications ?Medication ?Instructions ?Recorded ?Confirmed ?Type desvenlafaxine succinate 50 mg 50 mg PO DAILY 02/07/23 10/19/24 History tablet,extended release 24 hr tirzepatide 2.5 mg/0.5 mL 2.5 mg subcut WEEKLY 10/19/24 10/19/24 History subcutaneous pen injector (Hanane) Allergies Allergy/AdvReac Type Severity Reaction Status Date / Time No Known Allergies Allergy Verified 10/18/24 17:38 Vital Signs Vital Signs - 24 hr 10/18/24 17:39 10/18/24 23:05 10/18/24 23:55 Temperature 97.4 F L Pulse Rate 135 H 111 H 100 Respiratory Rate 20 17 17 Blood Pressure 115/72 104/60 123/75 Pulse Oximetry 99 96 95 Oxygen Delivery Room Air 10/19/24 00:47 10/19/24 02:33 10/19/24 03:25 Temperature Pulse Rate 96 98 100 Respiratory Rate 17 17 17 Blood Pressure 128/66 113/65 118/69 Pulse Oximetry 95 95 95 Oxygen Delivery 10/19/24 05:04 10/19/24 06:24 10/19/24 07:36 Temperature Pulse Rate 92 92 91 Respiratory Rate 17 18 16 Blood Pressure 113/61 114/62 118/64 Pulse Oximetry 94 94 95 Oxygen Delivery 10/19/24 14:52 10/19/24 15:24 10/19/24 15:27 Temperature 98 F Pulse Rate 90 87 Respiratory Rate 20 20 Blood Pressure 127/58 L 116/67 Pulse Oximetry 99 96 Oxygen Delivery Room Air 10/19/24 16:00 Temperature Pulse Rate 87 Respiratory Rate Blood Pressure Pulse Oximetry Oxygen Delivery Exam Const: General: comfortable and no acute distress HENMT: Face/Nose/Sinus: Normal nares present Eyes: General: appearance normal, both eyes and all related structures Neck: Neck: supple Resp: Auscultation: clear to auscultation bilaterally Cardio: Rate: regular rate Rhythm: regular rhythm GI: Inspection: distended GI Palp: Yes Soft to palpation, Yes Tenderness to palpation present (GI) (mild ttp diffusely, no rebound) and No Guarding due to palpation present (GI) Skin: General skin exam: normal color Neuro: Speech: normal speech Motor exam (neuro): 5/5 motor strength present throughout Extrem: General: normal to inspection Psych: Mental Status: mental status grossly normal Results Labs 10/19/24 06:39 10/19/24 06:39 Labs: Short CBC 10/18/24 10/19/24 Range/Units 21:50 06:39 WBC 15.4 H 9.9 (4.5-10.0) K/mm3 Hgb 20.1 H 16.7 D (14.0-18.0) g/dL Hct 55.3 H 46.8 (42.0-52.0) % Plt Count 353 271 (150-375) k/mm3 [facility] 10/18/24 10/19/24 21:50 06:39 Sodium 141 137 Potassium 3.8 4.2 Chloride 105 107 Carbon Dioxide 20 L 21 L BUN 14 15 Creatinine 1.30 1.03 Glucose 109 136 H Calcium 9.0 8.0 L Liver Function 10/18/24 Range/Units 21:50 Total Bilirubin 1.6 H (0.2-1.3) mg/dL AST 15 L (17-59) U/L ALT 18 (6-50) U/L Alkaline Phosphatase 75 (38-126) U/L Albumin 4.3 (3.5-5.1) g/dL
[2024-10-20] VITALS: PULSE 67
[2024-10-20] MEDS: LACTATED RINGERS 1,000 ML 125 ML IV CONT ×2 (01:16→09:30)
[2024-10-20 03:05] LABS: Toxigenic C. Diff NEGATIVE (NEGATIVE)
[2024-10-20 04:00] VITALS: PULSE 69
[2024-10-20 06:00] VITALS: BP 104/52; PULSE 67; RESP 18; TEMP 36.8; O2SAT 97
[2024-10-20 08:00] VITALS: PULSE 67
[2024-10-20 08:40] VITALS: O2SAT 98
[2024-10-20] MEDS: DESVENLAFAXINE SUCCINATE 50 MG TAB.ER.24H PO (08:41)
[2024-10-20] MEDS: PANTOPRAZOLE SODIUM IV 40 MG VIAL IV PUSH (08:41)
[2024-10-20 11:58] LABS: Lactoferrin, Stool COMMENT:
--- NOTE | 2024-10-20 13:40 | P.DS_ITS ---
DS: Admitting Diagnosis Discharge Date 10/20/24 Admitting Diagnosis Viral gastroenteritis DS: Discharge Diagnosis Discharge Diagnosis (1) Gastroenteritis: Code(s): K52.9 - Noninfective gastroenteritis and colitis, unspecified Status: Acute (2) Bloody diarrhea: Code(s): R19.7 - Diarrhea, unspecified Status: Acute (3) Dehydration: Code(s): E86.0 - Dehydration Status: Acute DS: Summary Hospital Course Reason for hospitalization: Nausea, vomiting Abdominal pain diarrhea Hospital Course: 33 year old male with no major comorbidities, about 3 weeks ago started using mounjaro for weight loss. Last Thursday had 24 hours of intractable n/v with diarrhea but improved then yesterday again with similar symptoms, also noted some blood in stool and came to ER, sent home with medications but still was sick. CT scan noted changes consistent of diarrhea, no other findings, WBC 15k, hgb 20. GI was consulted, recommended for supportive treatment. No antibiotics were started. Nausea, vomiting has subsided. Patient has some abdominal dis comfort with diarrhea, no more blood. Is able to tolerate her regular food. Patient is being discharged home in stable condition. C diff was negative. Stool culture still pending on time of discharge. Status at Discharge Functional status at discharge: independent ambulation Overall status at discharge: patient is progressing back to baseline Time Spent with Patient Time attestation: Total time spent providing and/or coordinating discharge services: Exam Narrative: GENERAL: Pleasant, in no acute distress. Well-nourished. - EYES: EOMI. Anicteric. - HENT: Moist mucous membranes. - LUNGS: Clear to auscultation bilateral ly, no wheezing, rhonchi, or rales. - CARDIOVASCULAR: Regular rate and rhyth m. No murmur. No JVD. - ABDOMEN: Soft, mild epigastric discomf ort on deep palpation and non-distended. No palpable masses. - EXTREMITIES: No edema. Peripheral puls es 2+. Non-tender. - NEUROLOGIC: No focal neurological defi cits. CN II-XII grossly intact. - PSYCHIATRIC: Awake, Alert and oriented x 3. Appropriate mood and affect. - SKIN: No rashes or lesions. Warm. - LYMPH: No cervical lymphadenopathy. DS: Data Data Completed and Pending Labs on day of discharge: Labs from last 24 hours 10/19/24 09:11 Stool Lactoferrin Comment: C. difficile (PCR) Negative Discharge Plan Discharge Attending physician on discharge: Meri Kimball Consulting providers: Dylan Covarrubias Discharging Clinician: Meri Kimball Anticipated Discharge Date/Time: 10/20/24 13:39 Patient Disposition: Home, Self-Care Activity: as tolerated Diet: as tolerated and regular Patient Instructions: Antibiotic Form Patient Language: Liberian Stand Alone Forms: General Discharge Information Follow-up/Referrals: Lenora,Zach Bailey MD [Primary Care Provider] - 2 Weeks Discharge Medications: Continued desvenlafaxine succinate 50 mg tablet extended release 24 hr 50 mg PO DAILY Mounjaro 2.5 mg/0.5 mL pen injector 2.5 mg subcut WEEKLY Patient Comments: takes on sundays Rx Instructions: for 4 weeks Date of admission: 10/18/24 23:28 Primary Care Provider: LenoraZach Admitting Provider: Alex Reyez V. Attending physician on admission: Alex Reyez V. Condition: Stable
--- NOTE | 2024-10-20 14:28 | WPDGIPROGNO ---
Progress Note: A&P Assessment and Plan (1) Gastroenteritis: Code(s): K52.9 - Noninfective gastroenteritis and colitis, unspecified Status: Acute Assessment and Plan: clinically much better, tolerating diet he is going home follow-up office in few weeks (2) Leukocytosis: Code(s): D72.829 - Elevated white blood cell count, unspecified Status: Acute (3) Dehydration: Code(s): E86.0 - Dehydration Status: Acute Assessment and Plan: resolved (4) Bloody diarrhea: Code(s): R19.7 - Diarrhea, unspecified Status: Acute Assessment and Plan: probably colonoscopy in few more weeks Subjective Date/time seen: 10/20/24 13:18 Interval history: doing much better and eating, he is going home Review of Systems Review of Systems: All systems reviewed & are unremarkable except as noted in HPI and below Exam Const: General: comfortable and no acute distress HENMT: Face/Nose/Sinus: Normal nares present Eyes: General: appearance normal, both eyes and all related structures Neck: Neck: no JVD Resp: Auscultation: clear to auscultation bilaterally Cardio: Rate: regular rate Rhythm: regular rhythm GI: Inspection: non-distended GI Palp: Yes Soft to palpation Skin: General skin exam: normal color Neuro: General: gait normal Speech: normal speech Extrem: General: normal to inspection Psych: Mental Status: mental status grossly normal Objective Data Vital Signs Vital Signs: Vital Signs - 24 hr 10/19/24 14:52 10/19/24 15:24 10/19/24 15:27 Temperature 98 F Pulse Rate 90 87 Respiratory Rate 20 20 Blood Pressure 127/58 L 116/67 Pulse Oximetry 99 96 Oxygen Delivery Room Air 10/19/24 16:00 10/19/24 20:00 10/19/24 21:37 Temperature 98.1 F Pulse Rate 87 92 81 Respiratory Rate 18 Blood Pressure 109/64 Pulse Oximetry 97 Oxygen Delivery 10/20/24 00:00 10/20/24 04:00 10/20/24 06:00 Temperature 98.3 F Pulse Rate 67 69 67 Respiratory Rate 18 Blood Pressure 104/52 L Pulse Oximetry 97 Oxygen Delivery 10/20/24 08:00 10/20/24 08:40 Temperature Pulse Rate 67 Respiratory Rate Blood Pressure Pulse Oximetry 98 Oxygen Delivery Room Air Intake/Output Intake/Output: Intake & Output 10/17/24 10/18/24 10/19/24 10/20/24 23:59 23:59 23:59 23:59 Intake Total 4740 2636 Balance 4740 2636 Labs Labs: Laboratory Results - last 24 hr 10/19/24 09:11 Stool Lactoferrin Comment: C. difficile (PCR) Negative
== END 2024-10-20 14:00 | disposition home or self-care (01) ==
LOC: ANHED 23:32 → ANH3MEDSUR 10-19 13:59
PROVIDERS: Hospitalist; Nurse Practitioner Family; Admitting Provider Internal Medicine; Emergency Provider Student in an Organized Health Care Education/Training Program; PCP Internal Medicine; Visit Provider Internal Medicine
DX: K52.9 Noninfective gastroenteritis and colitis, unspecified (principal); E86.0 Dehydration; D72.829 Elevated white blood cell count, unspecified; Z87.442 Personal history of urinary calculi; Z79.85 Long-term (current) use of injectable non-insulin antidiabetic drugs; Z79.899 Other long term (current) drug therapy
CPT/HCPCS: 36415; 80048; 80053; 80307; 83630; 83690; 83735; 84100; 85025; 87045; 87177; 87209; 87427; 87449; 87493; 93005; 96361; 96365; 96372; 96374; 96375; 96376; 99285; A9270; G0378; J0744; J1171; J1200; J2405; J2470; J2765; J2919; J7030; J7120

== ENCOUNTER 2025-01-18 00:50 | Day surgery (SDC) | payer OTHER, SELFPAY ==
[2025-01-09 09:09] VITALS: BMI 34.2
--- OUTSIDE RECORDS SUMMARY | 2025-01-18 00:52 | XMS_ITS | Clinical Summary ---
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 90 tablet 3 4 Active cefdinir (OMNICEF) 300 MG Cap capsuleIndications: Acute non-recurrent maxillary sinusitis Take 2 capsules (600 mg total) by mouth daily. 20 capsule 5 Active ciprofloxacin (CILOXAN) 0.3 % ophthalmic solutionIndications :Acute conjunctivitis of both eyes, unspecified acute conjunctivitis type Use 1 drop in affected eye every 2 hours while awake for 7 days. 5 mL 5 Active Active Problems Problem Noted Date Diagnosed Date Laceration 11/12/2021 Resolved Problems Problem Noted Date Diagnosed Date Resolved Date Sinusitis 11/11/2024 11/11/2024 COVID-19 09/18/2020 11/11/2024 Kidney stone 10/22/2017 05/16/2020 Hematuria 10/19/2017 05/16/2020 Encounters Date Type Department Care Team Description 11/11/[address] [facility] Family & Internal Medicine [address] [phone] Zach Cooley MD Sinus Problem from Last 3 Months Immunizations Immunization Administration Dates Next Due Fluzone 6 Months+ [...] Sex Assigned at Male 08/05/2018 8:18 AM ROOFER VINYL COATING Legal Sex Male 7:15 PM CDT Gender Identity Male 08/05/2018 8:18 AM ROOFER VINYL COATING Sexual Orientation Straight 08/05/2018 8: 18 AM ROOFER VINYL COATING Last Filed Vital Signs Vital Sign Reading Time Taken Comments Blood Pressure 130/84 08/24/2024 9:43 AM ROOFER VINYL COATING Pulse 84 08/24/2024 9:43 AM ROOFER VINYL COATING Temperature 37.2 C (99 F) 08/24/2024 9:43 AM ROOFER VINYL COATING Respiratory Rate 18 08/24/2024 9:43 AM ROOFER VINYL COATING Oxygen Saturation 98% 08/24/2024 9:43 AM ROOFER VINYL COATING Inhaled Oxygen Concentration - - Weight 110.6 kg (243 lb 14.4 oz) 08/24/2024 9:43 AM ROOFER VINYL COATING Height 180.3 cm (5' 11 ) 08/24/2024 9:43 AM ROOFER VINYL COATING Body Mass Index 34.02 08/24/2024 9:43 AM ROOFER VINYL COATING Plan of Treatment Health Maintenance Due Date Last Done Comments Hepatitis C 2009 Hepatitis B Vaccines (1 of 3 - 19+ 3-dose series) 2010 Annual Physical 05/16/2021 05/16/2020 PHQ-2 (Physician [place]) 09/21/2024 COVID-19 Vaccine (3 - 2023-2 5 season) [...] 5 Years) and At-Risk Patients (6 to 49 Years) Aged Out No longer eligible b ased on patient's age to complete this topic RSV Immunizations Under 20 Months Aged Out No longer eligible b ased on patient's age to complete this topic Insurance Care Teams [employer] Department Head Relationship Specialty Start Date End Date Zach Cooley MD [address] [place] [address] PCP - General INTERNAL MEDICINE 10/19/17
[2025-01-18 12:48] VITALS: BP 139/89; PULSE 93; RESP 18; TEMP 36.1; O2SAT 98
[2025-01-18] MEDS: LACTATED RINGERS 1,000 ML 150 ML IV CONT (12:57)
--- NOTE | 2025-01-18 13:03 | PM.HPGS ---
History of Present Illness History of Present Illness Consent: Risks, benefits, and alternatives have been discussed and questions answered. Patient agrees to proceed with procedure. Chief complaint: Colitis,diarrhea Narrative: Kel Cheng is a 34 year old male with colitis earlier this year that required hospitalization, he is back to his baseline and here for first colonoscopy Review of Systems Review of Systems: All systems reviewed & are unremarkable except as noted in HPI and below PMFSH Past Medical History Medical History (Updated 01/18/25 @ 13:04 by Dylan Covarrubias MD) History of colitis Leukocytosis Dehydration Urolithiasis Surgical History Surgical History History of urethral stent Family History Family History Grandparent Family history of Alzheimer's disease Social History Social History Smoking status: Never smoker Alcohol intake: current Drinks per week: 1 Substance use: never Substance use type: does not use Do You Feel Safe in your Home?: Yes Lack of Transportation: No Lack of Food: Never True Current Housing: I Have Housing Concerned About Future Housing: No Difficulty Paying Gas/Electric Bills: No Difficulty Paying for Meds: No Currently Unemployed: No Education: Decline to Answer Difficulty w/ Childcare or Family Care: No Living arrangements: with family Spiritual care concerns: No Meds Home Medications and Allergies Home Medications ?Medication ?Instructions ?Recorded ?Confirmed ?Type desvenlafaxine succinate 50 mg 50 mg PO DAILY 02/07/23 01/18/25 History tablet,extended release 24 hr tirzepatide 2.5 mg/0.5 mL 2.5 mg subcut WEEKLY 10/19/24 01/09/25 History subcutaneous pen injector (Mounjaro) Allergies Allergy/AdvReac Type Severity Reaction Status Date / Time No Known Allergies Allergy Verified 01/18/25 12:46 Vital Signs Vital Signs - 24 hr 01/18/25 12:48 Temperature 97 F L Pulse Rate 93 Respiratory Rate 18 Blood Pressure 139/89 Pulse Oximetry 98 Oxygen Delivery Room Air Exam Const: General: comfortable and no acute distress HENMT: Face/Nose/Sinus: Normal nares present Eyes: General: appearance normal, both eyes and all related structures Neck: Neck: no JVD Resp: Auscultation: clear to auscultation bilaterally Cardio: Rate: regular rate Rhythm: regular rhythm GI: Inspection: non-distended GI Palp: Yes Soft to palpation Skin: General skin exam: normal color Neuro: General: gait normal Speech: normal speech Extrem: General: normal to inspection Psych: Mental Status: mental status grossly normal Assessment and Plan Assessment and plan (1) History of colitis: Code(s): Z87.19 - Personal history of other diseases of the digestive system Status: Acute Assessment and Plan: resolved colonoscopy
--- NOTE | 2025-01-18 13:06 | P.PNAN_ITS ---
Anes - Initial Pre Proc Eval Procedure: Operation Date: 01/18/25 13:45 Proposed Procedures p Colonoscopy - Dylan Covarrubias MD Date/Time: 01/18/25 13:06 Surgeon: Dylan Covarrubias MD Pre Op Diagnosis: Colitis,diarrhea Patient Data Age: 34 Gender: M Height: 1.8 m Weight: 109.5 kg Last Vital Signs Temp 97 F L 01/18/25 12:48 Pulse 93 01/18/25 12:48 Resp 18 01/18/25 12:48 BP 139/89 01/18/25 12:48 Pulse Ox 98 01/18/25 12:48 O2 Del Method Room Air 01/18/25 12:48 Allergies Allergy/AdvReac Type Severity Reaction Status Date / Time No Known Allergies Allergy Verified 01/18/25 12:46 Home Medications ?Medication ?Instructions ?Recorded ?Confirmed ?Type desvenlafaxine succinate 50 mg 50 mg PO DAILY 02/07/23 01/18/25 History tablet,extended release 24 hr tirzepatide 2.5 mg/0.5 mL 2.5 mg subcut WEEKLY 10/19/24 01/09/25 History subcutaneous pen injector (Mounjaro) Patient hx anesthesia problems: none Family hx anesthesia problems: none Results Review: All pre-operative results and documents have been reviewed as part of the pre- operative evaluation. [facility] Past Medical History Medical History (Updated 01/18/25 @ 13:04 by Dylan Covarrubias MD) History of colitis Leukocytosis Dehydration Urolithiasis Surgical History Surgical History History of urethral stent Family History Family History Grandparent Family history of Alzheimer's disease Social History Social History Smoking status: Never smoker Alcohol intake: current Drinks per week: 1 Substance use: never Substance use type: does not use Do You Feel Safe in your Home?: Yes Lack of Transportation: No Lack of Food: Never True Current Housing: I Have Housing Concerned About Future Housing: No Difficulty Paying Gas/Electric Bills: No Difficulty Paying for Meds: No Currently Unemployed: No Education: Decline to Answer Difficulty w/ Childcare or Family Care: No Living arrangements: with family Spiritual care concerns: No Anes - Eval Final PreProcedure Day of Procedure 01/18/25 13:06 Patient weight: obese Heart: regular rate and rhythm Lungs: clear to auscultation Airway: Mallampati scale class II Neurological: alert and oriented Last oral intake: >/= 8 hours ASA classification: II Emergent: no Anesthetic plan: proceed Anesthesia type and monitoring: general GIVS and standard monitoring Results Review: All pre-operative results and documents have been reviewed as part of the pre- operative evaluation. Informed Consent: The patient's anesthetic plan and its attendant risks and benefits were discussed with the patient/family/POA. Questions were solicited and answers provided to the satisfaction of the patient/family/POA.
[2025-01-18 13:18] VITALS: BP 119/76; PULSE 85; RESP 23; O2SAT 94
[2025-01-18 13:28] VITALS: BP 121/82; PULSE 85; RESP 30; O2SAT 95
[2025-01-18 13:38] VITALS: BP 128/79; PULSE 83; RESP 30; O2SAT 94
== END 2025-01-18 13:48 | disposition home or self-care (01) ==
PROVIDERS: PCP Internal Medicine; Visit Provider Internal Medicine Gastroenterology
PROC: 0DJD8ZZ Inspection of Lower Intestinal Tract, Via Natural or Artificial Opening Endoscopic (ICD-10-PCS; CPT 45378; principal; 2025-01-18 13:45)
DX: Z09 Encounter for follow-up examination after completed treatment for conditions other than malignant neoplasm (principal); D72.829 Elevated white blood cell count, unspecified; E66.9 Obesity, unspecified; Z68.33 Body mass index [BMI] 33.0-33.9, adult; Z79.85 Long-term (current) use of injectable non-insulin antidiabetic drugs; Z96.0 Presence of urogenital implants; Z87.19 Personal history of other diseases of the digestive system
CPT/HCPCS: 45378; J2704; J7120